=== PATIENT | male | born 1980 | race Caucasian/White ===

== ENCOUNTER 2019-03-11 15:32 | Emergency (ER) | payer BC ==
--- NOTE | 2019-03-11 15:51 | EDM.PDOC ---
ED HPI GENERAL MEDICAL PROBLEM - General Chief Complaint: Abdominal Pain Stated Complaint: STOMACH PAIN Time Seen by Provider: 03/11/19 15:41 Source of Information: Reports: Patient History Limitations: Reports: No Limitations - History of Present Illness INITIAL COMMENTS - FREE TEXT/NARRATIVE: HISTORY AND PHYSICAL: History of present illness: Patient is a 38 year old male who presents to the ED with c/o upper abdominal pain, nausea and vomiting x 1 hour. He states the pain was sudden and describes it as sharp. When the pain came on he was drinking a coffee and sitting at his desk. He did take a shower to see if the cool water would help alleviate any discomfort. He also feels slightly diaphoretic. Patient denies any fever, chills , headache, change in vision, syncope or near syncope. Denies any chest pain, back pain, shortness of breath or cough. Denies any diarrhea, constipation or dysuria. Has not noted any blood in urine or stool. Patient has been eating and drinking appropriately. No recent injury, trauma or falls. Review of systems: As per history of present illness and below otherwise all systems reviewed and negative. Past medical history: As per history of present illness and as reviewed below otherwise noncontributory. Surgical history: As per history of present illness and as reviewed below otherwise noncontributory. Social history: See social history for further information Family history: As per history of present illness and as reviewed below otherwise noncontributory. Physical exam: General: Well-developed and well-nourished 38-year-old male. Alert and oriented. Nontoxic appearing and in no acute distress. HEENT: Atraumatic, normocephalic, pupils equal and reactive bilaterally, negative for conjunctival pallor or scleral icterus, mucous membranes moist, trachea midline. No drooling or trismus noted. No meningeal signs. No hot potato voice noted. Lungs: Clear to auscultation, breath sounds equal bilaterally, chest nontender. Heart: S1S2, regular rate and rhythm without overt murmur Abdomen: Soft, obese, epigastric tenderness with palpation. Negative for masses or hepatosplenomegaly. Negative for costovertebral tenderness. Pelvis: Stable nontender. Genitourinary: Deferred. Rectal: Deferred. Skin: Intact, warm, dry. No lesions or rashes noted. Extremities: Atraumatic, moves all extremities per self without difficulty or deficits. Neurovascular unremarkable. Neuro: Awake, alert, oriented. Cranial nerves II through XII unremarkable. Cerebellum unremarkable. Motor and sensory unremarkable throughout. Exam nonfocal. Notes: Lab work is unremarkable. Ultrasound shows steatosis and cholelithiasis. Vital signs are stable and have been reviewed by me. Findings were shared with patient and supportive care measures were reviewed and discussed. Encouraged him to follow up with general surgery for further evaluation and management. Voices understanding and is agreeable to plan of care. Denies any further questions or concerns at this time. Diagnostics: CBC, CMP, UA, Lipase, EKG Therapeutics: IV fluid, Zofran, Toradol Prescription: Follansbee (#30) Zofran (#10) Impression: Cholelithiasis Plan: 1. [place] diet over the next 24-48 hours. Please follow low-fat diet thereafter 2. Tylenol and/or ibuprofen as needed for pain management. Follansbee for moderate to severe pain. This medication may cause drowsiness so do not take it'll driving or needing to be functioning outside of the house. Zofran as needed for nausea management. 3. Please call the general surgeon's office tomorrow to set up a follow-up appointment. Return to the ED as needed and as discussed. Definitive disposition and diagnosis as appropriate pending reevaluation and review of above. Onset: Today Epigastric Pain Score (Numeric/FACES): 8 - Related Data Allergies Allergy/AdvReac Type Severity Reaction Status Date / Time No Known Allergies Allergy Verified 03/11/19 15:56 Home Meds: Home Meds Fish Oil/[place]-3 Fatty Acids [Fish Oil] 1 tab PO DAILY 03/11/19 [History] Lisinopril/Hydrochlorothiazide [Lisinopril-Hctz 20-25 mg Tab] 1 tab PO DAILY [History] Omeprazole Magnesium [Prilosec Otc] 20 mg PO DAILY 03/11/19 [History] ED ROS GENERAL - Review of Systems Review Of Systems: ROS reveals no pertinent complaints other than HPI. ED EXAM, GI/ABD - Physical Exam Exam: See Below (See dictation) Course - Vital Signs Last Recorded V/S: Last Vital Signs Temp 95.6 F 03/11/19 15:52 Pulse 60 03/11/19 17:10 Resp 18 03/11/19 17:10 BP 149/79 H 03/11/19 17:10 Pulse Ox 94 L 03/11/19 17:10 - Orders/Labs/Meds Orders: Active Orders 24 hr Category Date Time Status EKG Documentation Completion [RC] STAT Care 03/11/19 16:00 Active Labs: Laboratory Tests 03/11/19 03/11/19 03/11/19 Range/Units 16:05 16:05 16:05 WBC 8.44 (4.0-11.0) K/uL RBC 4.96 (4.50-5.90) M/uL Hgb 14.3 (13.0-17.0) g/dL Hct 43.6 (38.0-50.0) % MCV 87.9 (80.0-98.0) fL MCH 28.8 (27.0-32.0) pg MCHC 32.8 (31.0-37.0) g/dL RDW Std Deviation 43.9 (28.0-62.0) fl RDW Coeff of Yazmin 14 (11.0-15.0) % Plt Count 177 (150-400) K/uL MPV 10.10 (7.40-12.00) fL Neut % (Auto) 63.0 (48.0-80.0) % Lymph % (Auto) 27.6 (16.0-40.0) % [place] % (Auto) 8.2 (0.0-15.0) % Eos % (Auto) 0.8 (0.0-7.0) % Baso % (Auto) 0.4 (0.0-1.5) % Neut # (Auto) 5.3 (1.4-5.7) K/uL Lymph # (Auto) 2.3 (0.6-2.4) K/uL [place] # (Auto) 0.7 (0.0-0.8) K/uL Eos # (Auto) 0.1 (0.0-0.7) K/uL Baso # (Auto) 0.0 (0.0-0.1) K/uL Nucleated RBC % 0.0 /100WBC Nucleated RBCs # 0 K/uL Sodium 137 (136-148) mmol/L Potassium 3.3 L (3.5-5.1) mmol/L Chloride 99 (98-107) mmol/L Carbon Dioxide 30.5 (21.0-32.0) mmol/L BUN 17 (7.0-18.0) mg/dL Creatinine 1.0 (0.8-1.3) mg/dL Est Cr Clr Drug Dosing 122.97 mL/min Estimated GFR (MDRD) > 60.0 ml/min Glucose 126 H (74-106) mg/dL Calcium 8.8 (8.5-10.1) mg/dL Total Bilirubin 0.4 (0.2-1.0) mg/dL AST 16 (15-37) IU/L ALT 37 (14-63) IU/L Alkaline Phosphatase 64 (46-116) U/L Troponin I < 0.050 (0.000-0.056) ng/mL Total Protein 7.2 (6.4-8.2) g/dL Albumin 3.8 (3.4-5.0) g/dL Globulin 3.4 (2.6-4.0) g/dL Albumin/Globulin Ratio 1.1 (0.9-1.6) Lipase 154 (73-393) U/L Urine Color Urine Appearance Urine pH (5.0-8.0) Ur Specific [place] (1.001-1.035) Urine Protein (NEGATIVE) mg/dL Urine Glucose (UA) (NEGATIVE) mg/dL Urine Ketones (NEGATIVE) mg/dL Urine Occult Blood (NEGATIVE) Urine Nitrite (NEGATIVE) Urine Bilirubin (NEGATIVE) Urine Ictotest Urine Urobilinogen (<2.0) EU/dL Ur Leukocyte Esterase (NEGATIVE) Urine RBC (0-2/HPF) Urine WBC (0-5/HPF) Ur Epithelial Cells (NONE-FEW) Urine Bacteria (NEGATIVE) Urine Mucus (NONE-MOD) H. pylori IgG Antibody (NEG) 03/11/19 03/11/19 Range/Units 16:05 17:05 WBC (4.0-11.0) K/uL RBC (4.50-5.90) M/uL Hgb (13.0-17.0) g/dL Hct (38.0-50.0) % MCV (80.0-98.0) fL MCH (27.0-32.0) pg MCHC (31.0-37.0) g/dL RDW Std Deviation (28.0-62.0) fl RDW Coeff of Yazmin (11.0-15.0) % Plt Count (150-400) K/uL MPV (7.40-12.00) fL Neut % (Auto) (48.0-80.0) % Lymph % (Auto) (16.0-40.0) % [place] % (Auto) (0.0-15.0) % Eos % (Auto) (0.0-7.0) % Baso % (Auto) (0.0-1.5) % Neut # (Auto) (1.4-5.7) K/uL Lymph # (Auto) (0.6-2.4) K/uL [place] # (Auto) (0.0-0.8) K/uL Eos # (Auto) (0.0-0.7) K/uL Baso # (Auto) (0.0-0.1) K/uL Nucleated RBC % /100WBC Nucleated RBCs # K/uL Sodium (136-148) mmol/L Potassium (3.5-5.1) mmol/L Chloride (98-107) mmol/L Carbon Dioxide (21.0-32.0) mmol/L BUN (7.0-18.0) mg/dL Creatinine (0.8-1.3) mg/dL Est Cr Clr Drug Dosing mL/min Estimated GFR (MDRD) ml/min Glucose (74-106) mg/dL Calcium (8.5-10.1) mg/dL Total Bilirubin (0.2-1.0) mg/dL AST (15-37) IU/L ALT (14-63) IU/L Alkaline Phosphatase (46-116) U/L Troponin I (0.000-0.056) ng/mL Total Protein (6.4-8.2) g/dL Albumin (3.4-5.0) g/dL Globulin (2.6-4.0) g/dL Albumin/Globulin Ratio (0.9-1.6) Lipase (73-393) U/L Urine Color YELLOW Urine Appearance CLEAR Urine pH 5.5 (5.0-8.0) Ur Specific [place] >= 1.030 (1.001-1.035) Urine Protein TRACE H (NEGATIVE) mg/dL Urine Glucose (UA) NEGATIVE (NEGATIVE) mg/dL Urine Ketones NEGATIVE (NEGATIVE) mg/dL Urine Occult Blood NEGATIVE (NEGATIVE) Urine Nitrite NEGATIVE (NEGATIVE) Urine Bilirubin SMALL H (NEGATIVE) Urine Ictotest NEGATIVE Urine Urobilinogen 1.0 (<2.0) EU/dL Ur Leukocyte Esterase NEGATIVE (NEGATIVE) Urine RBC NONE SEEN (0-2/HPF) Urine WBC NONE SEEN (0-5/HPF) Ur Epithelial Cells MANY (NONE-FEW) Urine Bacteria RARE (NEGATIVE) Urine Mucus LIGHT (NONE-MOD) H. pylori IgG Antibody NEGATIVE (NEG) Meds: Medications Discontinued Medications Generic Name Dose Route Start Last Admin Trade Name Freq PRN Reason Stop Dose Admin Al Hydroxide/Mg Hydroxide 15 0 ml 03/11/19 16:39 03/11/19 17:07 ml/ Metoclopramide HCl 5 mg/ PO 03/11/19 16:40 1 each Lidocaine HCl 5 ml ONETIME ONE Administration Famotidine 20 mg 03/11/19 16:39 03/11/19 17:07 Pepcid IVPUSH 03/11/19 16:40 20 mg ONETIME ONE Administration Sodium Chloride 1,000 mls @ 999 mls/hr 03/11/19 15:52 03/11/19 16:10 Normal Saline IV 03/11/19 16:52 999 mls/hr STAT ONE Administration Morphine Sulfate 4 mg 03/11/19 16:00 03/11/19 16:12 Morphine IVPUSH 03/11/19 16:01 4 mg ONETIME ONE Administration Ondansetron HCl 4 mg 03/11/19 15:52 03/11/19 16:12 Zofran IVPUSH 03/11/19 15:53 4 mg ONETIME ONE Administration Departure - Departure Time of Disposition: 17:59 Disposition: Home, Self-Care 01 Clinical Impression: Cholelithiasis Qualifiers: Cholelithiasis location: gallbladder Cholecystitis presence: without cholecystitis Biliary obstruction: without biliary obstruction Qualified Code(s) : K80.20 - Calculus of gallbladder without cholecystitis without obstruction - Discharge Information Instructions: Cholelithiasis, [id number] Referrals: Joy Navarro DYNAM[employer] TECHNICAL ARCHITECT [Primary Care Provider] - Forms: ED Department Discharge Additional Instructions: The following information is given to patients seen in the emergency department who are being discharged to home. This information is to outline your options for follow-up care. We provide all patients seen in our emergency department with a follow-up referral. The need for follow-up, as well as the timing and circumstances, are variable depending upon the specifics of your emergency department visit. If you don't have a primary care physician on staff, we will provide you with a referral. We always advise you to contact your personal physician following an emergency department visit to inform them of the circumstance of the visit and for follow-up with them and/or the need for any referrals to a consulting specialist. The emergency department will also refer you to a specialist when appropriate. This referral assures that you have the opportunity for follow-up care with a specialist. All of these measure are taken in an effort to provide you with optimal care, which includes your follow-up. Under all circumstances we always encourage you to contact your private physician who remains a resource for coordinating your care. When calling for follow-up care, please make the office aware that this follow-up is from your recent emergency room visit. If for any reason you are refused follow-up, please contact the [facility] Emergency Department at and asked to speak to the emergency department charge nurse. [facility] Primary Care [address] [place] [id number] [facility] Specialty Care - General Surgery Professional Building [address] [place] [address], [address] [place] [address] 1. [place] diet over the next 24-48 hours. Please follow low-fat diet thereafter 2. Tylenol and/or ibuprofen as needed for pain management. Follansbee for moderate to severe pain. This medication may cause drowsiness so do not take it'll driving or needing to be functioning outside of the house. Zofran as needed for nausea management. 3. Please call the general surgeon's office tomorrow to set up a follow-up appointment. Return to the ED as needed and as discussed. - My Orders Last 24 Hours: My Active Orders 03/11/19 16:00 EKG Documentation Completion [RC] STAT - Assessment/Plan Last 24 Hours: My Active Orders 03/11/19 16:00 EKG Documentation Completion [RC] STAT
[2019-03-11] MEDS ORDERED: Sodium Chloride 0.9% 1,000 ML IV ONE (15:52)
[2019-03-11] MEDS ORDERED: Ondansetron 4 MG/2 ML SDV IVPUSH ONE (15:52)
[2019-03-11] MEDS ORDERED: Morphine 4 MG/ML Syringe IVPUSH ONE (16:00)
[2019-03-11] MEDS ORDERED: Alum Hydrox/Mag Hydrox/Simeth 15 ML, Metoclopramide 5 MG, Lidocaine 2% 5 ML PO ONE ×3 (16:39)
[2019-03-11] MEDS ORDERED: Famotidine 20 MG/2 ML SDV IVPUSH ONE (16:39)
[2019-03-11 17:09] LABS: CHLORIDE,CL 99 mmol/L (98-107); SODIUM,NA 137 mmol/L (136-148)
--- NOTE | 2019-03-11 17:47 | US ---
INDICATION: Right upper quadrant abdominal pain. FINDINGS: Visualized pancreas is normal. Liver is echogenic with poor through transmission. No definite mass or cyst. Common bile duct 4 mm at the mary anne hepatis. Several small echogenic stones appear mobile at the proximal neck of the gallbladder. No sonographic Walters`s sign. No wall thickening. Right kidney is sonographically normal. IMPRESSION: Steatosis. Cholelithiasis. Dictated by Jefe Cormier MD @ Mar 11 2019 5:44PM Signed by Dr. Jefe Cormier @ Mar 11 2019 5:45PM
== END 2019-03-11 18:10 | disposition home or self-care (01) ==
LOC: MW.ED 15:32
DX: K80.20 Calculus of gallbladder without cholecystitis without obstruction (principal); Z79.899 Other long term (current) drug therapy
CPT/HCPCS: 36415; 76705; 80053; 81001; 83690; 84484; 85025; 86677; 93005; 96361; 96374; 96375; 99284; A9270; J2270; J2405; J3490; J7040

== ENCOUNTER 2019-10-22 11:46 | Emergency (ER) | payer BC ==
[2019-10-22] MEDS ORDERED: Ondansetron 4 MG/2 ML SDV IVPUSH ONE (12:24)
[2019-10-22] MEDS ORDERED: Sodium Chloride 0.9% 1,000 ML IV ONE (12:24)
[2019-10-22] MEDS ORDERED: HYDROmorphone 2 MG/ML Syringe IVPUSH ONE ×2 (12:25→15:46)
--- NOTE | 2019-10-22 12:38 | EDM.PDOC ---
ED HPI GENERAL MEDICAL PROBLEM - General Chief Complaint: Abdominal Pain Stated Complaint: ABD PAIN Time Seen by Provider: 10/22/19 12:14 Source of Information: Reports: Patient History Limitations: Reports: No Limitations - History of Present Illness INITIAL COMMENTS - FREE TEXT/NARRATIVE: HISTORY OF PRESENT ILLNESS: Patient is a 39-year-old male who presents with abdominal pain since 10 AM this morning. Patient describes the pain as diffuse , sharp, 8 out of 10 in severity without exacerbating or alleviating factors. Patient does have a history of gallstones in the past but this pain is more diffuse. Reports nausea and one episode of nausea bloody nonbilious emesis. Denies any diarrhea. No urinary symptoms. Denies any chest pain dyspnea or syncope. Denies any fever or rash. No neck stiffness. REVIEW OF SYSTEMS: Other than the symptoms associated with the present events, the following is reported with regard to recent health: General: (-) fever. HENT: (-) congestion. Respiratory: (-) cough. Cardiovascular: (-) chest pain. GI: (+) abdominal pain. : (-) urinary complaints. Musculoskeletal: (-) other aches or pains. Endocrine: (-) generalized weakness. Neurological: (-) localized weakness. Skin: (-) rash PAST MEDICAL HISTORY: reviewed as per nursing notes SOCIAL HISTORY: reviewed as per nursing notes, MEDICATIONS: Per nurse's note ALLERGIES: Per nurse's note, reviewed by me PHYSICAL EXAMINATION: GENERALIZED APPEARANCE: well developed, well nourished in mild distress VITAL SIGNS: Per nurse's note, reviewed by me SKIN: Warm, dry; (-) cyanosis; (-) rash. HEAD: (-) scalp swelling, (-) tenderness. EYES: (-) conjunctival pallor, (-) scleral icterus. ENMT: (-) stridor; mucous membranes moist. NECK: (-) tenderness, (-) stiffness, CHEST AND RESPIRATORY: (-) rales, (-) rhonchi, (-) wheezes; breath sounds equal bilaterally. HEART AND CARDIOVASCULAR: (-) irregularity; (-) murmur, (-) gallop. ABDOMEN AND GI: Soft; (+) diffuse mild tenderness, (-) guarding, (-) rebound, (-) palpable masses, (-) Mcburney's point tenderness (-) Nicci's EXTREMITIES: (-) deformity, (-) edema. NEURO AND PSYCH: Alert. Cranial nerves grossly intact; strength symmetric. gait steady DIAGNOSTICS: CT abd pelvis: see radiologist report, reviewed by myself US: see radiologist report, reviewed by myself Labs reviewed EMERGENCY DEPARTMENT COURSE AND TREATMENT: Patient's condition remained stable during Emergency Department evaluation. Labs, IVF, Dilaudid and Zofran ordered. CT abd/pelvis ordered. Gallstone present, therefore u/s ordered to exclude cholecystitis. The patient presents to the ED with abdominal pain. After history, physical exam, and diagnostic evaluation, the etiology for the pain is unclear. Laboratory data was ordered. On serial exams, there are no peritoneal signs. Abdomen is soft without guarding or rebound. I think there is a very low probability of significant abdominal pathology based on today's evaluation. The patient is advised to have a followup tomorrow for a recheck and repeat abdominal exam. I also advised to return to the emergency department immediately for significant pain, fevers, not tolerating oral food or fluid, or new complaints. PLAN AND FOLLOW-UP: Patient received written and verbal instructions regarding this condition. Return to ED immediately with any new or worsening symptoms. Follow up to be arranged by patient with pcp in 1 days for further evaluation. Given discharge precautions. Patient expressed verbal understanding. upper abd Pain Score (Numeric/FACES): 8 - Related Data Allergies Allergy/AdvReac Type Severity Reaction Status Date / Time No Known Allergies Allergy Verified 10/22/19 12:26 Home Meds: Home Meds Fish Oil/[place]-3 Fatty Acids [Fish Oil] 1 tab PO DAILY 03/11/19 [History] Lisinopril/Hydrochlorothiazide [Lisinopril-Hctz 20-25 mg Tab] 1 tab PO DAILY [History] Past Medical History Cardiovascular History: Reports: High Cholesterol, Hypertension Gastrointestinal History: Reports: GERD Other Gastrointestinal History: gall stones - Infectious Disease History Infectious Disease History: Reports: Chicken Pox Social & Family History - Family History Family Medical History: Noncontributory - Tobacco Use Smoking Status *Q: Current Every Day Smoker Years of Tobacco use: 20 Packs/Tins Daily: 0.5 - Caffeine Use Caffeine Use: Reports: None - Recreational Drug Use Recreational Drug Use: No ED ROS GENERAL - Review of Systems Review Of Systems: See Below (see dictation) ED EXAM, GI/ABD - Physical Exam Exam: See Below (see dictation) Course - Vital Signs Last Recorded V/S: Last Vital Signs Temp 96.3 F 10/22/19 12:22 Pulse 63 10/22/19 16:20 Resp 18 10/22/19 16:20 BP 120/70 10/22/19 16:20 Pulse Ox 96 10/22/19 16:20 - Orders/Labs/Meds Labs: Laboratory Tests 10/22/19 10/22/19 Range/Units 13:50 13:50 WBC 10.73 (4.0-11.0) K/uL RBC 5.01 (4.50-5.90) M/uL Hgb 14.8 (13.0-17.0) g/dL Hct 43.6 (38.0-50.0) % MCV 87.0 (80.0-98.0) fL MCH 29.5 (27.0-32.0) pg MCHC 33.9 (31.0-37.0) g/dL RDW Std Deviation 44.3 (28.0-62.0) fl RDW Coeff of Yazmin 14 (11.0-15.0) % Plt Count 174 (150-400) K/uL MPV 10.10 (7.40-12.00) fL Neut % (Auto) 76.6 (48.0-80.0) % Lymph % (Auto) 16.9 (16.0-40.0) % [place] % (Auto) 6.1 (0.0-15.0) % Eos % (Auto) 0.2 (0.0-7.0) % Baso % (Auto) 0.2 (0.0-1.5) % Neut # (Auto) 8.2 H (1.4-5.7) K/uL Lymph # (Auto) 1.8 (0.6-2.4) K/uL [place] # (Auto) 0.7 (0.0-0.8) K/uL Eos # (Auto) 0.0 (0.0-0.7) K/uL Baso # (Auto) 0.0 (0.0-0.1) K/uL Nucleated RBC % 0.0 /100WBC Nucleated RBCs # 0 K/uL Sodium 141 (136-148) mmol/L Potassium 4.2 (3.5-5.1) mmol/L Chloride 104 (98-107) mmol/L Carbon Dioxide 28.6 (21.0-32.0) mmol/L BUN 20 H (7.0-18.0) mg/dL Creatinine 0.9 (0.8-1.3) mg/dL Est Cr Clr Drug Dosing 135.29 mL/min Estimated GFR (MDRD) > 60.0 ml/min Glucose 151 H (74-106) mg/dL Calcium 9.0 (8.5-10.1) mg/dL Total Bilirubin 0.3 (0.2-1.0) mg/dL AST 19 (15-37) IU/L ALT 31 (14-63) IU/L Alkaline Phosphatase 54 (46-116) U/L Total Protein 7.3 (6.4-8.2) g/dL Albumin 3.8 (3.4-5.0) g/dL Globulin 3.5 (2.6-4.0) g/dL Albumin/Globulin Ratio 1.1 (0.9-1.6) Lipase 109 (73-393) U/L Meds: Medications Discontinued Medications Generic Name Dose Route Start Last Admin Trade Name Freq PRN Reason Stop Dose Admin Hydromorphone HCl 1 mg 10/22/19 12:25 10/22/19 13:52 Dilaudid IVPUSH 10/22/19 12:26 1 mg ONETIME ONE Administration Hydromorphone HCl 1 mg 10/22/19 15:46 10/22/19 15:54 Dilaudid IVPUSH 10/22/19 15:47 1 mg ONETIME ONE Administration Sodium Chloride 1,000 mls @ 1,000 mls/hr 10/22/19 12:24 10/22/19 13:52 Normal Saline IV 10/22/19 13:23 1,000 mls/hr .Bolus ONE Administration Iopamidol 100 ml 10/22/19 15:34 10/22/19 15:35 Isovue Multipack-370 (76%) IVPUSH 10/22/19 15:35 100 ml ONETIME STA Administration Ondansetron HCl 4 mg 10/22/19 12:24 10/22/19 13:53 Zofran IVPUSH 10/22/19 12:25 4 mg ONETIME ONE Administration Departure - Departure Time of Disposition: 17:17 Disposition: Home, Self-Care 01 Condition: Good Clinical Impression: Abdominal pain, Vomiting, Gallstone - Discharge Information *PRESCRIPTION DRUG MONITORING PROGRAM REVIEWED*: Not Applicable *COPY OF PRESCRIPTION DRUG MONITORING REPORT IN PATIENT MONTEZ: Not Applicable Referrals: Joy Navarro KITCHEN AND COUNTER WORKER [Primary Care Provider] - 1 Day Forms: ED Department Discharge Additional Instructions: The following information is given to patients seen in the emergency department who are being discharged to home. This information is to outline your options for follow-up care. We provide all patients seen in our emergency department with a follow-up referral. The need for follow-up, as well as the timing and circumstances, are variable depending upon the specifics of your emergency department visit. If you don't have a primary care physician on staff, we will provide you with a referral. We always advise you to contact your personal physician following an emergency department visit to inform them of the circumstance of the visit and for follow-up with them and/or the need for any referrals to a consulting specialist. The emergency department will also refer you to a specialist when appropriate. This referral assures that you have the opportunity for follow-up care with a specialist. All of these measure are taken in an effort to provide you with optimal care, which includes your follow-up. Under all circumstances we always encourage you to contact your private physician who remains a resource for coordinating your care. When calling for follow-up care, please make the office aware that this follow-up is from your recent emergency room visit. If for any reason you are refused follow-up, please contact the [facility] Emergency Department at and asked to speak to the emergency department charge nurse. Sepsis Event Note - Evaluation Sepsis Screening Result: No Definite Risk - Focused Exam Vital Signs: Vital Signs Temp Pulse Resp BP Pulse Ox 10/22/19 16:20 63 18 120/70 96 10/22/19 15:37 60 18 154/82 H 97 10/22/19 12:22 96.3 F 56 L 16 123/59 L 96 Date Exam was Performed: 10/22/19 Time Exam was Performed: 17:21
[2019-10-22 14:30] LABS: BLOOD UREA NITROGEN,BUN 20 mg/dL (7.0-18.0); CARBON DIOXIDE,CO2 28.6 mmol/L (21.0-32.0); CHLORIDE,CL 104 mmol/L (98-107); GLUCOSE RANDOM 151 mg/dL (74-106); LIPASE 109 U/L (73-393); POTASSIUM,K 4.2 mmol/L (3.5-5.1); SODIUM,NA 141 mmol/L (136-148)
[2019-10-22] MEDS ORDERED: Iopamidol 755 MG/ML 500 ML Multipack Bottle IVPUSH STA (15:34)
--- NOTE | 2019-10-22 16:09 | CT ---
CT abdomen and pelvis Technique: Multiple axial sections were obtained from above the dome of the diaphragm inferiorly through the pubic symphysis. Intravenous contrast was utilized. No oral contrast has been given. Findings: Visualized lung bases show nothing acute. Liver contains no focal abnormality. Spleen appears within normal limits. Opacity is seen within the gallbladder most likely due to gallstone. Adrenal glands show no nodule. Pancreas is within normal limits. Kidneys show symmetric contrast enhancement with no hydronephrosis or mass. Aorta shows no aneurysm. No retroperitoneal adenopathy or mesenteric abnormalities are seen. No pelvic mass or adenopathy is identified. Appendix is seen and is normal in size. Bone window settings were reviewed which shows no acute osseous finding. Bone lesion noted within the left iliac bone measuring 2.8 cm. This has an appearance of a benign bone lesion. Impression: 1. Probable gallstone. 2. Bone lesion within left iliac bone believed to be benign. 3. No additional abnormality is appreciated on CT study of the abdomen and pelvis. Diagnostic code #2 This report was dictated in [place] Standard Time is
--- NOTE | 2019-10-22 17:14 | US ---
Limited abdominal ultrasound: Multiple real-time images of the upper right abdomen were obtained. Comparison: Prior CT abdomen and pelvis study of 10/22/19 is available. Technologist's note: Difficult study due to patient body habitus Liver shows no discrete abnormality. Single gallstone is seen within the gallbladder measuring 1.6 cm. No gallbladder wall thickening or biliary duct dilatation is seen. Right kidney shows no hydronephrosis or discrete mass. Right kidney measures 12.4 cm in length. Pancreas is mostly obscured from bowel gas. Visualized portions of the pancreas are within normal limits. Impression: 1. Single gallstone with no gallbladder wall thickening or biliary duct dilatation. 2. No additional abnormality is definitely appreciated on somewhat limited right upper quadrant abdominal ultrasound exam. Diagnostic code #3 Study was dictated in [place] Standard Time
== END 2019-10-22 17:45 | disposition home or self-care (01) ==
LOC: MW.ED 11:46
DX: K80.20 Calculus of gallbladder without cholecystitis without obstruction (principal); I10 Essential (primary) hypertension; F17.210 Nicotine dependence, cigarettes, uncomplicated; Z79.899 Other long term (current) drug therapy
CPT/HCPCS: 36415; 74177; 76705; 80053; 83690; 85025; 96361; 96374; 96375; 96376; 99284; J1170; J2405; J7030; Q9967; 99283

== ENCOUNTER 2019-10-25 03:04 | Emergency (ER) | payer BC ==
[2019-10-25] MEDS ORDERED: Hyoscyamine 0.125 MG Tab.SL SL ONE (03:34)
--- NOTE | 2019-10-25 03:39 | EDM.PDOC ---
ED HPI GENERAL MEDICAL PROBLEM - General Chief Complaint: Abdominal Pain Stated Complaint: ABDOMINAL PAIN Time Seen by Provider: 10/25/19 03:27 - History of Present Illness INITIAL COMMENTS - FREE TEXT/NARRATIVE: HISTORY AND PHYSICAL: History of present illness: The patient is a 39-year-old male who was seen here on October 22 for abdominal pain and worked up with labs CAT scan of the abdomen and pelvis and an abdominal ultrasound and was diagnosed with a gallstone without any other abnormalities. He has a follow-up appointment scheduled at [facility] on Saturday but presents stating that since this past Saturday he has not had a bowel movement which is unusual for him. He says that with the discomfort and the pain medications he received here in the ED as well as some old [place] he had at home he has been taking he has gotten constipated. He has been pushing fluids and eating high-fiber but has not tried stool softeners or any other over -the-counter laxatives. He has had no fevers chills chest pain shortness of breath vomiting flank pain and no urinary issues. He says that he feels somewhat gassy and bloated and that his abdominal pain is still present in the right upper quadrant prior to his last visit but that has lessened and now he has diffuse upper abdominal and mid abdominal discomfort. He has no lower abdominal pain. He has no abdominal surgical history. Review of systems: As per history of present illness and below otherwise all systems reviewed and negative. Past medical history: As per history of present illness and as reviewed below otherwise noncontributory. Surgical history: As per history of present illness and as reviewed below otherwise noncontributory. Social history: No reported history of drug or alcohol abuse. Family history: As per history of present illness and as reviewed below otherwise noncontributory. Physical exam: Well-developed well-nourished overweight man who is nontoxic and vital signs are noted by me. He moves easily in the ED without any distress or difficulty HEENT: Atraumatic, normocephalic, pupils reactive, negative for conjunctival pallor or scleral icterus, mucous membranes moist, throat clear, neck supple, nontender, trachea midline. Lungs: Clear to auscultation, breath sounds equal bilaterally, chest nontender. Heart: S1S2, regular, negative for clicks, rubs, or JVD. Abdomen: Soft, nondistended, diminished bowel sounds and there is tympany on percussion of the upper abdomen without discrete tenderness. On palpation there is diffuse upper abdominal and mid abdominal mild tenderness without rebound or guarding and there is no lower abdominal tenderness, negative for masses or hepatosplenomegaly. Negative for costovertebral tenderness. Pelvis: Stable nontender. Genitourinary: Deferred. Rectal: Deferred. Extremities: Atraumatic, negative for cords or calf pain. Neurovascular unremarkable. Neuro: Awake, alert, oriented. Cranial nerves II through XII unremarkable. Cerebellum unremarkable. Motor and sensory unremarkable throughout. Exam nonfocal. Diagnostics: CBC CMP lipase abdominal x-rays Therapeutics: hyoscamine The patient is aware of all lab and x-ray findings and says that the hyoscyamine did not really help very much. He has an appointment with his provider coming up and I advised him to keep that. I have also discussed with him using [id number] Colace twice a day for the next week or so as well as MiraLAX mixed with Gatorade try to help to get his bowels going in a more gentle way. He states understanding. Impression: Abdominal pain/constipation history of cholelithiasis and abdominal pain associated with that Definitive disposition and diagnosis as appropriate pending reevaluation and review of above. Abdominal Pain Score (Numeric/FACES): 5 - Related Data Allergies Allergy/AdvReac Type Severity Reaction Status Date / Time No Known Allergies Allergy Verified 10/25/19 03:24 Home Meds: Home Meds Fish Oil/[place]-3 Fatty Acids [Fish Oil] 1 tab PO DAILY 03/11/19 [History] Lisinopril/Hydrochlorothiazide [Lisinopril-Hctz 20-25 mg Tab] 1 tab PO DAILY [History] Past Medical History Cardiovascular History: Reports: High Cholesterol, Hypertension Gastrointestinal History: Reports: GERD Other Gastrointestinal History: gall stones - Infectious Disease History Infectious Disease History: Reports: Chicken Pox Social & Family History - Family History Family Medical History: Noncontributory - Caffeine Use Caffeine Use: Reports: None ED ROS GENERAL - Review of Systems Review Of Systems: Comprehensive ROS is negative, except as noted in HPI. ED EXAM, GENERAL - Physical Exam Exam: See Below (see dictation) Course - Vital Signs Last Recorded V/S: Last Vital Signs Temp 35.6 C 10/25/19 03:12 Pulse 89 10/25/19 03:12 Resp 18 10/25/19 03:12 BP 142/86 H 10/25/19 03:12 Pulse Ox 97 10/25/19 03:12 - Orders/Labs/Meds Labs: Laboratory Tests 10/25/19 10/25/19 Range/Units 03:53 03:53 WBC 13.40 H (4.0-11.0) K/uL RBC 5.12 (4.50-5.90) M/uL Hgb 15.2 (13.0-17.0) g/dL Hct 45.2 (38.0-50.0) % MCV 88.3 (80.0-98.0) fL MCH 29.7 (27.0-32.0) pg MCHC 33.6 (31.0-37.0) g/dL RDW Std Deviation 46.0 (28.0-62.0) fl RDW Coeff of Yazmin 14 (11.0-15.0) % Plt Count 183 (150-400) K/uL MPV 10.40 (7.40-12.00) fL Neut % (Auto) 75.0 (48.0-80.0) % Lymph % (Auto) 12.9 L (16.0-40.0) % [place] % (Auto) 11.6 (0.0-15.0) % Eos % (Auto) 0.4 (0.0-7.0) % Baso % (Auto) 0.1 (0.0-1.5) % Neut # (Auto) 10.0 H (1.4-5.7) K/uL Lymph # (Auto) 1.7 (0.6-2.4) K/uL [place] # (Auto) 1.6 H (0.0-0.8) K/uL Eos # (Auto) 0.1 (0.0-0.7) K/uL Baso # (Auto) 0.0 (0.0-0.1) K/uL Nucleated RBC % 0.0 /100WBC Nucleated RBCs # 0 K/uL Sodium 140 (136-148) mmol/L Potassium 4.5 (3.5-5.1) mmol/L Chloride 100 (98-107) mmol/L Carbon Dioxide 33.3 H (21.0-32.0) mmol/L BUN 10 (7.0-18.0) mg/dL Creatinine 0.9 (0.8-1.3) mg/dL Est Cr Clr Drug Dosing TNP Estimated GFR (MDRD) > 60.0 ml/min Glucose 106 (74-106) mg/dL Calcium 9.2 (8.5-10.1) mg/dL Total Bilirubin 0.8 (0.2-1.0) mg/dL AST 11 L (15-37) IU/L ALT 29 (14-63) IU/L Alkaline Phosphatase 50 (46-116) U/L Total Protein 7.6 (6.4-8.2) g/dL Albumin 3.8 (3.4-5.0) g/dL Globulin 3.8 (2.6-4.0) g/dL Albumin/Globulin Ratio 1.0 (0.9-1.6) Lipase 101 (73-393) U/L Meds: Medications Discontinued Medications Generic Name Dose Route Start Last Admin Trade Name Freq PRN Reason Stop Dose Admin Hyoscyamine 0.125 mg 10/25/19 03:34 10/25/19 03:44 Hyomax-Sl SL 10/25/19 03:35 0.125 mg ONETIME ONE Administration Departure - Departure Time of Disposition: 04:35 Disposition: Home, Self-Care 01 Condition: Good Clinical Impression: Abdominal pain Qualifiers: Abdominal location: generalized Qualified Code(s): R10.84 - Generalized abdominal pain Constipation Qualifiers: Constipation type: unspecified constipation type Qualified Code(s): K59.00 - Constipation, unspecified - Discharge Information Referrals: Joy Navarro NP [Primary Care Provider] - Forms: ED Department Discharge Additional Instructions: The following information is given to patients seen in the emergency department who are being discharged to home. This information is to outline your options for follow-up care. We provide all patients seen in our emergency department with a follow-up referral. The need for follow-up, as well as the timing and circumstances, are variable depending upon the specifics of your emergency department visit. If you don't have a primary care physician on staff, we will provide you with a referral. We always advise you to contact your personal physician following an emergency department visit to inform them of the circumstance of the visit and for follow-up with them and/or the need for any referrals to a consulting specialist. The emergency department will also refer you to a specialist when appropriate. This referral assures that you have the opportunity for followup care with a specialist. All of these measure are taken in an effort to provide you with optimal care, which includes your followup. Under all circumstances we always encourage you to contact your private physician who remains a resource for coordinating your care. When calling for followup care, please make the office aware that this follow-up is from your recent emergency room visit. If for any reason you are refused follow-up, please contact the [facility] emergency department at and ask to speak to the emergency department charge nurse. [address] [place] [address] Continue with hydration and high-fiber foods and avoid fatty foods junk foods and fast foods as this may trigger your gallbladder. Keep your appointment with your provider in the clinic as scheduled this week. Use tuux-whx-jxsudlo Colace as we discussed 100 mg twice a day for the next week and then continue as you choose. Purchase and start using stav-xyu-zehypdj MiraLAX as we discussed mixed with Gatorade and for the next 2 days take it twice a day and then once a day until you feel like your bowels are moving more appropriately. Return to ER as needed and as we discussed Sepsis Event Note - Evaluation Sepsis Screening Result: No Definite Risk - Focused Exam Vital Signs: Vital Signs Temp Pulse Resp BP Pulse Ox 10/25/19 03:12 35.6 C 89 18 142/86 H 97 Date Exam was Performed: 10/25/19 Time Exam was Performed: 04:34
[2019-10-25 04:12] LABS: BLOOD UREA NITROGEN,BUN 10 mg/dL (7.0-18.0); CARBON DIOXIDE,CO2 33.3 mmol/L (21.0-32.0); CHLORIDE,CL 100 mmol/L (98-107); GLUCOSE RANDOM 106 mg/dL (74-106); LIPASE 101 U/L (73-393); POTASSIUM,K 4.5 mmol/L (3.5-5.1); SODIUM,NA 140 mmol/L (136-148)
--- NOTE | 2019-10-25 04:22 | CR ---
Indication: Abdominal pain Technique: KUB 2 view Comparison: CT abdomen pelvis October 22, 2019 Findings/Impression: : Soft tissues: No suspicious calcifications to suggest kidney or ureteral stones. No sign of free air. No sign of soft tissue mass. Bowel: Bowel pattern is within normal limits. Bones: Unremarkable for age. Dictated by Laura Coyle MD @ Oct 25 2019 4:21AM Signed by Dr. Laura Coyle @ Oct 25 2019 4:21AM
== END 2019-10-25 04:54 | disposition home or self-care (01) ==
LOC: MW.ED 03:04
DX: R10.84 Generalized abdominal pain (principal); K59.00 Constipation, unspecified; I10 Essential (primary) hypertension; Z87.19 Personal history of other diseases of the digestive system; Z79.899 Other long term (current) drug therapy
CPT/HCPCS: 36415; 74019; 80053; 83690; 85025; 99284; A9270; 99283

== ENCOUNTER 2020-01-23 12:35 | Emergency (ER) | payer BC ==
[2020-01-23] MEDS ORDERED: Ondansetron 4 MG/2 ML SDV IVPUSH ONE (12:59)
[2020-01-23] MEDS ORDERED: Sodium Chloride 0.9% 1,000 ML IV ONE (12:59)
[2020-01-23] MEDS ORDERED: Ketorolac 30 MG/ML SDV IVPUSH ONE (12:59)
--- NOTE | 2020-01-23 13:01 | EDM.PDOC ---
ED HPI GENERAL MEDICAL PROBLEM - General Chief Complaint: Back Pain or Injury Stated Complaint: BACK PAIN/ABDOMINAL PAIN Time Seen by Provider: 01/23/20 12:40 Source of Information: Reports: Patient History Limitations: Reports: No Limitations - History of Present Illness INITIAL COMMENTS - FREE TEXT/NARRATIVE: HISTORY AND PHYSICAL: History of present illness: Patient is a 39-year-old male who presents to the emergency room with complaints of right upper quadrant and low back pain since . He states he has been delayed in getting his gallbladder removed due to COIVD-19 cancellation of elective surgeries. He has been dealing with "gallbladder issues" over the past 6 to 8 months. On he had a fried chicken sandwich and ice cream, resulting in the pain he is experiencing now. He did have some leftover hydrocodone which he took yesterday and seemed to help alleviate his discomfort but today his low back pain is "unbearable". He has had some associated nausea and vomiting. Patient denies any fever, chills, headache, change in vision, syncope or near syncope. Denies any chest pain, back pain, shortness of breath or cough. Denies any diarrhea, constipation or dysuria. Has not noted any blood in urine or stool. Denies any testicular pain , swelling or redness. Patient has been eating and drinking appropriately. Review of systems: As per history of present illness and below otherwise all systems reviewed and negative. Past medical history: As per history of present illness and as reviewed below otherwise noncontributory. Surgical history: As per history of present illness and as reviewed below otherwise noncontributory. Social history: See social history for further information Family history: As per history of present illness and as reviewed below otherwise noncontributory. Physical exam: General: Well-developed and well-nourished 39-year-old male. Alert and oriented. Nontoxic-appearing and in no acute distress. HEENT: Atraumatic, normocephalic, pupils equal and reactive bilaterally, negative for conjunctival pallor or scleral icterus, mucous membranes moist, TMs normal bilaterally, throat clear, neck supple, nontender, trachea midline. No drooling or trismus noted. No meningeal signs. No hot potato voice noted. Lungs: Clear to auscultation, breath sounds equal bilaterally, chest nontender. Heart: S1S2, regular rate and rhythm without overt murmur Abdomen: Soft, obese, right upper quadrant tenderness. Negative for masses or hepatosplenomegaly. Negative for costovertebral tenderness. Skin: Intact, warm, dry. No lesions or rashes noted. Extremities: Atraumatic, moves all extremities per self without difficulty or deficits, negative for cords or calf pain. Neurovascular unremarkable. Neuro: Awake, alert, oriented. Cranial nerves II through XII unremarkable. Cerebellum unremarkable. Motor and sensory unremarkable throughout. Exam nonfocal. Notes: He does have an appointment with Dr. Parson, general surgeon, on 02/02/2020 for follow up with his gallbladder. Lab work is unremarkable. Ultrasound shows at least 3 mobile gallstones. The gallbladder wall is thickened, but no pericholecystic free fluid is identified. The patient has not been NPO for 6 hours. A mild sonographic Walters`s sign is present. We discussed dietary, medication, and supportive care measures for home. And and symptoms that would prompt him to return to the emergency room were reviewed and discussed. voices understanding and is agreeable to plan of care. Denies any further questions or concerns at this time. Diagnostics: CBC, CMP, UA, Gallbladder U/S Therapeutics: IV fluids, Zofran, Toradol Prescription: [place] and Zofran Impression: Gallstones Plan: 1. [place] diet, advance as tolerated. Avoid foods that will aggravate your gallbladder. 2. Increase your oral fluids. Tylenol and/or ibuprofen as needed for pain management. [place] and Zofran as directed. 3. Call Dr Parson's office to see if you able to get an expedited appointment, if not - keep your appointment for 02/02/20. 4. Return to the ED as needed and as discussed. Definitive disposition and diagnosis as appropriate pending reevaluation and review of above. RUQ and low back Pain Score (Numeric/FACES): 6 - Related Data Allergies Allergy/AdvReac Type Severity Reaction Status Date / Time No Known Allergies Allergy Verified 01/23/20 12:51 Home Meds: Home Meds Fish Oil/[place]-3 Fatty Acids [Fish Oil] 1 tab PO DAILY 03/11/19 [History] Lisinopril/Hydrochlorothiazide [Lisinopril-Hctz 20-25 mg Tab] 1 each PO DAILY [History] Past Medical History HEENT History: Reports: None Cardiovascular History: Reports: High Cholesterol, Hypertension Respiratory History: Reports: None Gastrointestinal History: Reports: GERD Other Gastrointestinal History: symptomatic cholelithiasis Genitourinary History: Reports: None Musculoskeletal History: Reports: None Neurological History: Reports: None Psychiatric History: Reports: None Endocrine/Metabolic History: Reports: Obesity/BMI 30+ Hematologic History: Reports: None Immunologic History: Reports: None Oncologic (Cancer) History: Reports: None Dermatologic History: Reports: None - Infectious Disease History Infectious Disease History: Reports: None - Past Surgical History Head Surgeries/Procedures: Reports: None HEENT Surgical History: Reports: Tonsillectomy Cardiovascular Surgical History: Reports: None Respiratory Surgical History: Reports: None GI Surgical History: Reports: None Male Surgical History: Reports: None Endocrine Surgical History: Reports: None Neurological Surgical History: Reports: None Musculoskeletal Surgical History: Reports: None Oncologic Surgical History: Reports: None Dermatological Surgical History: Reports: None Social & Family History - Family History Family Medical History: Noncontributory - Tobacco Use Smoking Status *Q: Current Every Day Smoker Years of Tobacco use: 20 Packs/Tins Daily: 0.5 - Caffeine Use Caffeine Use: Reports: None - Recreational Drug Use Recreational Drug Use: No ED ROS GENERAL - Review of Systems Review Of Systems: Comprehensive ROS is negative, except as noted in HPI. ED EXAM,LOWER BACK PAIN/INJURY - Physical Exam Exam: See Below (See dictation) Course - Vital Signs Last Recorded V/S: Last Vital Signs Temp 96.7 F L 01/23/20 12:52 Pulse 68 01/23/20 14:27 Resp 18 01/23/20 14:27 BP 145/80 H 01/23/20 14:27 Pulse Ox 98 01/23/20 14:27 - Orders/Labs/Meds Orders: Active Orders 24 hr Category Date Time Status COMPREHENSIVE METABOLIC PN,CMP [CHEM] Stat Lab 01/23/20 13:59 Received Labs: Laboratory Tests 01/23/20 01/23/20 Range/Units 13:00 13:59 WBC 10.71 (4.0-11.0) K/uL RBC 4.93 (4.50-5.90) M/uL Hgb 14.5 (13.0-17.0) g/dL Hct 43.9 (38.0-50.0) % MCV 89.0 (80.0-98.0) fL MCH 29.4 (27.0-32.0) pg MCHC 33.0 (31.0-37.0) g/dL RDW Std Deviation 46.5 (28.0-62.0) fl RDW Coeff of Yazmin 14 (11.0-15.0) % Plt Count 178 (150-400) K/uL MPV 9.80 (7.40-12.00) fL Neut % (Auto) 74.5 (48.0-80.0) % Lymph % (Auto) 16.6 (16.0-40.0) % [place] % (Auto) 8.5 (0.0-15.0) % Eos % (Auto) 0.3 (0.0-7.0) % Baso % (Auto) 0.1 (0.0-1.5) % Neut # (Auto) 8.0 H (1.4-5.7) K/uL Lymph # (Auto) 1.8 (0.6-2.4) K/uL [place] # (Auto) 0.9 H (0.0-0.8) K/uL Eos # (Auto) 0.0 (0.0-0.7) K/uL Baso # (Auto) 0.0 (0.0-0.1) K/uL Nucleated RBC % 0.0 /100WBC Nucleated RBCs # 0 K/uL Urine Color YELLOW Urine Appearance CLEAR Urine pH 7.5 (5.0-8.0) Ur Specific [place] 1.020 (1.001-1.035) Urine Protein NEGATIVE (NEGATIVE) mg/dL Urine Glucose (UA) NEGATIVE (NEGATIVE) mg/dL Urine Ketones NEGATIVE (NEGATIVE) mg/dL Urine Occult Blood NEGATIVE (NEGATIVE) Urine Nitrite NEGATIVE (NEGATIVE) Urine Bilirubin NEGATIVE (NEGATIVE) Urine Urobilinogen 0.2 (<2.0) EU/dL Ur Leukocyte Esterase NEGATIVE (NEGATIVE) Meds: Medications Discontinued Medications Generic Name Dose Route Start Last Admin Trade Name Freq PRN Reason Stop Dose Admin Sodium Chloride 1,000 mls @ 999 mls/hr 01/23/20 12:59 01/23/20 13:07 Normal Saline IV 01/23/20 13:59 999 mls/hr STAT ONE Administration Ketorolac Tromethamine 30 mg 01/23/20 12:59 01/23/20 13:07 Toradol IVPUSH 01/23/20 13:00 30 mg ONETIME ONE Administration Ondansetron HCl 4 mg 01/23/20 12:59 01/23/20 13:07 Zofran IVPUSH 01/23/20 13:00 4 mg ONETIME ONE Administration Departure - Departure Time of Disposition: 14:39 Disposition: Home, Self-Care 01 Clinical Impression: Gallstone Qualifiers: Cholecystitis presence: without cholecystitis Biliary obstruction: without biliary obstruction Qualified Code(s): K80.20 - Calculus of gallbladder without cholecystitis without obstruction - Discharge Information Instructions: Cholelithiasis, Vyze-ye-Kohw Referrals: Joy Navarro NP [Primary Care Provider] - Forms: ED Department Discharge Additional Instructions: The following information is given to patients seen in the emergency department who are being discharged to home. This information is to outline your options for follow-up care. We provide all patients seen in our emergency department with a follow-up referral. The need for follow-up, as well as the timing and circumstances, are variable depending upon the specifics of your emergency department visit. If you don't have a primary care physician on staff, we will provide you with a referral. We always advise you to contact your personal physician following an emergency department visit to inform them of the circumstance of the visit and for follow-up with them and/or the need for any referrals to a consulting specialist. The emergency department will also refer you to a specialist when appropriate. This referral assures that you have the opportunity for follow-up care with a specialist. All of these measure are taken in an effort to provide you with optimal care, which includes your follow-up. Under all circumstances we always encourage you to contact your private physician who remains a resource for coordinating your care. When calling for follow-up care, please make the office aware that this follow-up is from your recent emergency room visit. If for any reason you are refused follow-up, please contact the [facility] Emergency Department at and asked to speak to the emergency department charge nurse. [facility] [address] [place] [id number] [facility] [address] [place] [id number] 1. [place] diet, advance as tolerated. Avoid foods that will aggravate your gallbladder. 2. Increase your oral fluids. Tylenol and/or ibuprofen as needed for pain management. [place] and Zofran as directed. 3. Call Dr Parson's office to see if you able to get an expedited appointment, if not - keep your appointment for 02/02/20. 4. Return to the ED as needed and as discussed. Sepsis Event Note - Evaluation Sepsis Screening Result: No Definite Risk - Focused Exam Vital Signs: Vital Signs Temp Pulse Resp BP Pulse Ox 01/23/20 14:27 68 18 145/80 H 98 01/23/20 12:52 96.7 F L 90 20 162/94 H 98 Date Exam was Performed: 01/23/20 Time Exam was Performed: 14:35 - My Orders Last 24 Hours: My Active Orders 01/23/20 13:59 COMPREHENSIVE METABOLIC PN,CMP [CHEM] Stat - Assessment/Plan Last 24 Hours: My Active Orders 01/23/20 13:59 COMPREHENSIVE METABOLIC PN,CMP [CHEM] Stat
--- NOTE | 2020-01-23 14:34 | US ---
Indication: Right upper quadrant ultrasound. History: Right upper quadrant pain. Ultrasound of the right upper quadrant was performed. Technique: None Comparison: October 22, 2019. Findings: The liver measures 16.8 centimeters in maximum dimension. The liver is heterogeneous in echotexture, consistent with diffuse fatty infiltration. The common bile duct measures 5 mm in size. At least 3 mobile gallstones are identified. No pericholecystic free fluid is identified. The gallbladder wall does appear to be mildly thickened measuring just under 5 mm in thickness. However, the patient 8 approximately 5 hours ago. Hepatopetal flow is identified within the portal vein. Portal vein is patent. The hepatic veins are patent. The right kidney measures 13.0 x 6.1 x 7.4 cm in size. No hydronephrosis is identified. No perinephric free fluid is identified. Normal color flow is identified to the right kidney. The pancreas is not well appreciated. The proximal aorta measures 2.3 x 2.4 x 1.4 cm in size. The mid aorta measures 2.1 x 1.7 cm in size. The distal aorta measures 1.8 x 1.9 cm in size. The right iliac artery measures 1.5 x 1.2 cm in size. The left iliac artery measures 1.3 x 0.7 cm in size. The inferior vena cava is patent. No free fluid is identified within the abdomen or pelvis. Impression: At least 3 mobile gallstones. The gallbladder wall is thickened, but no pericholecystic free fluid is identified. The patient has not been NPO for 6 hours. A mild sonographic Walters`s sign is present. Heterogeneity of the liver which can be seen with diffuse fatty infiltration of the liver. Dictated by Selma Park MD @ Jan 23 2020 2:26PM Signed by Dr. Selma Park @ Jan 23 2020 2:31PM
[2020-01-23 14:50] LABS: BLOOD UREA NITROGEN,BUN 9 mg/dL (7.0-18.0); CARBON DIOXIDE,CO2 32.8 mmol/L (21.0-32.0); CHLORIDE,CL 101 mmol/L (98-107); GLUCOSE RANDOM 118 mg/dL (74-106); POTASSIUM,K 3.8 mmol/L (3.5-5.1); SODIUM,NA 136 mmol/L (136-148)
== END 2020-01-23 14:46 | disposition home or self-care (01) ==
LOC: MW.ED 12:35
DX: K80.20 Calculus of gallbladder without cholecystitis without obstruction (principal); I10 Essential (primary) hypertension; E66.9 Obesity, unspecified; Z68.42 Body mass index [BMI] 45.0-49.9, adult; F17.210 Nicotine dependence, cigarettes, uncomplicated; Z79.899 Other long term (current) drug therapy
CPT/HCPCS: 36415; 76705; 80053; 81003; 85025; 96360; 99284; J1885; J2405; J7030; 99283

== ENCOUNTER 2020-02-02 06:32 | Inpatient (IN) | payer BC ==
[~2020-02-02 06:32] MED LIST: Lactated Ringers 1,000 ML IV ONE; Lactated Ringers 1,000 ML IV SCH; Sodium Chloride 0.9% 10 ML SDV IV PRN; Sodium Chloride 0.9% 10 ML Syringe FLUSH PRN; Sodium Chloride 0.9% 2.5 ML Syringe FLUSH PRN; ceFAZolin 2 GM in Premix Bag 1 BAG IV ONE
[2020-02-02] MEDS: Lactated Ringers 1,000 ML IV SCH ×3 (07:15→20:54)
[2020-02-02] MEDS ORDERED: fentaNYL 250 MCG/5 ML SDV ONE (07:36)
[2020-02-02] MEDS ORDERED: 50% Dextrose in Water 50 ML Syringe IVPUSH PRN (07:40)
[2020-02-02] MEDS ORDERED: Naloxone 0.4 MG/ML Syringe IVPUSH PRN (07:40)
[2020-02-02] MEDS ORDERED: EPINEPHrine 1:10,000 1 MG/10 ML Syringe IVPUSH PRN (07:40)
[2020-02-02] MEDS ORDERED: Albuterol 0.083% 2.5 MG/3 ML Neb Soln NEB PRN (07:40)
[2020-02-02] MEDS ORDERED: fentaNYL 100 MCG/2 ML SDV IVPUSH PRN (07:40)
[2020-02-02] MEDS ORDERED: Atropine 0.1 MG/ML 10 ML Syringe IVPUSH PRN ×2 (07:40)
--- NOTE | 2020-02-02 07:41 | PCM.PREANE ---
Preanesthetic Assessment - Anesthesia/Transfusion/Family Hx Anesthesia History: Prior Anesthesia Without Reaction Family History of Anesthesia Reaction: No Transfusion History: No Prior Transfusion(s) Intubation History: Unknown - Review of Systems General: No Symptoms Pulmonary: No Symptoms Cardiovascular: No Symptoms Gastrointestinal: No Symptoms Neurological: No Symptoms Other: Reports: None - Physical Assessment Height: 6 ft 4 in Weight: 162.386 kg ASA Class: 3 Mental Status: Alert & Oriented x3 Airway Class: Mallampati = 3 Dentition: Reports: Normal Dentition, Broken Tooth/Teeth (rigt lower (back)) Thyro-Mental Finger Breadths: 3 (long montesinos) Mouth Opening Finger Breadths: 3 ROM/Head Extension: Full Lungs: Clear to Auscultation, Normal Respiratory Effort Cardiovascular: Regular Rate, Regular Rhythm - Allergies Allergies/Adverse Reactions: Allergies Allergy/AdvReac Type Severity Reaction Status Date / Time No Known Allergies Allergy Verified 02/02/20 07:36 - Blood Blood Available: No - Anesthesia Plan Pre-Op Medication Ordered: None - Acknowledgements Anesthesia Type Planned: General Anesthesia Pt an Appropriate Candidate for the Planned Anesthesia: Yes Alternatives and Risks of Anesthesia Discussed w Pt/Guardian: Yes Pt/Guardian Understands and Agrees with Anesthesia Plan: Yes PreAnesthesia Questionnaire HEENT History: Reports: None Cardiovascular History: Reports: High Cholesterol, Hypertension Respiratory History: Reports: None, Other (See Below) (never tested for sleep apnea) Gastrointestinal History: Reports: Cholelithiasis, GERD Other Gastrointestinal History: symptomatic cholelithiasis Genitourinary History: Reports: None Musculoskeletal History: Reports: None Neurological History: Reports: None Psychiatric History: Reports: None Endocrine/Metabolic History: Reports: Obesity/BMI 30+ (BMI 43.6) Hematologic History: Reports: None Immunologic History: Reports: None Oncologic (Cancer) History: Reports: None Dermatologic History: Reports: None - Infectious Disease History Infectious Disease History: Reports: None - Past Surgical History Head Surgeries/Procedures: Reports: None HEENT Surgical History: Reports: Tonsillectomy (at age 13) Cardiovascular Surgical History: Reports: None Respiratory Surgical History: Reports: None GI Surgical History: Reports: None Male Surgical History: Reports: None Endocrine Surgical History: Reports: None Neurological Surgical History: Reports: None Musculoskeletal Surgical History: Reports: None Oncologic Surgical History: Reports: None Dermatological Surgical History: Reports: None - SUBSTANCE USE Smoking Status *Q: Current Every Day Smoker (1 ppd) Tobacco Use Within Last Twelve Months: Cigarettes - HOME MEDS Home Medications: Home Meds Fish Oil/[place]-3 Fatty Acids [Fish Oil] 1 tab PO DAILY 03/11/19 [History] hydroCHLOROthiazide [Hydrochlorothiazide] 50 mg PO DAILY 01/27/20 [History] lisinopriL [Lisinopril] 20 mg PO DAILY 01/27/20 [History] - CURRENT (IN HOUSE) MEDS Current Meds: Current Medications Lactated Ringer's (Ringers, Lactated) 1,000 mls @ 125 mls/hr IV ASDIRECTED ANDREY Discontinued Medications Cefazolin Sodium/Dextrose 2 gm (/ Premix) 50 mls @ 100 mls/hr IV ONETIME ONE Stop: 12/10/19 09:05 Lactated Ringer's (Ringers, Lactated) 1,000 mls @ 125 mls/hr IV ASDIRECTED ANDREY Cefazolin Sodium/Dextrose 2 gm (/ Premix) 50 mls @ 100 mls/hr IV ONETIME ONE Stop: 02/01/20 10:02 Sodium Chloride (Saline Flush) 10 ml FLUSH ASDIRECTED PRN PRN Reason: Keep Vein Open Sodium Chloride (Saline Flush) 2.5 ml FLUSH ASDIRECTED PRN PRN Reason: Keep Vein Open Sodium Chloride (Normal Saline) 10 ml IV ASDIRECTED PRN PRN Reason: IV Use
[2020-02-02] MEDS ORDERED: Lidocaine 2% 5 ML SDV ONE (08:29)
[2020-02-02] MEDS ORDERED: Midazolam 1 MG/ML 2 ML SDV ONE (08:29)
[2020-02-02] MEDS ORDERED: Ondansetron 4 MG/2 ML SDV ONE (08:29)
[2020-02-02] MEDS ORDERED: Rocuronium 100 MG/10 ML Syringe ONE (08:29)
[2020-02-02] MEDS ORDERED: Propofol 200 MG/20 ML SDV ONE (08:29)
[2020-02-02] MEDS ORDERED: Succinylcholine/Sod PF 100 MG/5 ML SYRINGE IV ONE ×2 (08:29→08:30)
[2020-02-02] MEDS ORDERED: Bupivacaine 0.5% 30 ML SDV ONE ×2 (09:10→11:33)
[2020-02-02] MEDS ORDERED: Glycopyrrolate 0.2 MG/ML SDV ONE ×2 (10:39)
[2020-02-02] MEDS ORDERED: Sodium Chloride 0.9% 20 ML ONE ×2 (10:47→10:51)
[2020-02-02] MEDS ORDERED: ceFAZolin 1 GM Vial ONE ×3 (10:47→11:33)
[2020-02-02] MEDS ORDERED: fentaNYL 100 MCG/2 ML SDV ONE ×3 (11:04→13:14)
[2020-02-02] MEDS ORDERED: ePHEDrine 50 MG/ML SDV ONE (11:30)
[2020-02-02] MEDS ORDERED: Piperacillin/Tazobactam 4.5 GM in Sodium Chloride 0.9% 100 ML IV ONE (11:45)
[2020-02-02] MEDS ORDERED: HYDROmorphone 2 MG/ML Syringe ONE (12:18)
[2020-02-02] MEDS ORDERED: Ketorolac 30 MG/ML SDV ONE (13:14)
[2020-02-02] MEDS ORDERED: Acetaminophen/oxyCODONE 325-5 MG Tab PO PRN (13:45)
[2020-02-02] MEDS ORDERED: Ondansetron 4 MG/2 ML SDV IVPUSH PRN (13:45)
[2020-02-02] MEDS ORDERED: diphenhydrAMINE 50 MG/ML SDV IVPUSH PRN (13:45)
[2020-02-02] MEDS ORDERED: HYDROmorphone 2 MG/ML Syringe IVPUSH PRN (13:45)
[2020-02-02] MEDS ORDERED: Promethazine 25 MG/ML SDV IM PRN (13:45)
--- NOTE | 2020-02-02 13:54 | PCM.OPNOTE ---
- General Post-Op/Procedure Note Date of Surgery/Procedure: 02/02/20 Operative Procedure(s): Laparoscopic converted to open cholecystectomy Findings: Severely inflamed gallbladder containing 3 small stones. Gallbladder wall thickened to ~1 cm. Posterior wall of gallbladder left in place. Pre Op Diagnosis: Symptomatic cholelithiasis Post-Op Diagnosis: Severe acute on chronic cholecystitis Anesthesia Technique: General ET Tube Primary Surgeon: Liliana Parson Fluid Replacement, Intraop: 3,000 Output, Urine Amount: 400 EBL in mLs: 500 Condition: Good
[2020-02-02 14:09] LABS: BLOOD UREA NITROGEN,BUN 13 mg/dL (7.0-18.0); CARBON DIOXIDE,CO2 27.7 mmol/L (21.0-32.0); CHLORIDE,CL 105 mmol/L (98-107); GLUCOSE RANDOM 109 mg/dL (74-106); POTASSIUM,K 4.8 mmol/L (3.5-5.1); SODIUM,NA 138 mmol/L (136-148)
[2020-02-02] MEDS ORDERED: HYDROmorphone 1 MG/ML Syringe IVPUSH PRN (15:00)
--- NOTE | 2020-02-02 15:25 | PCM.POSTAN ---
POST ANESTHESIA ASSESSMENT - MENTAL STATUS Mental Status: Alert, Oriented - VITAL SIGNS Vital Signs: Last Vital Signs Temp 37.1 C 02/02/20 14:20 Pulse 76 02/02/20 14:30 Resp 13 02/02/20 14:45 BP 145/69 H 02/02/20 14:45 Pulse Ox 98 02/02/20 14:45 - RESPIRATORY Respiratory Status: Respiratory Rate WNL, Airway Patent, O2 Saturation Stable - CARDIOVASCULAR CV Status: Pulse Rate WNL, Blood Pressure Stable - GASTROINTESTINAL GI Status: No Symptoms - PAIN Pain Score: 0 - POST OP HYDRATION Hydration Status: Adequate & Stable - OBSERVATIONS Free Text/Narrative:: No anesthesia problems
[2020-02-02] MEDS: Cyclobenzaprine 10 MG Tab PO SCH ×2 (16:11→22:54)
[2020-02-02] MEDS: Piperacillin/Tazobactam 3.375 GM in Sodium Chloride 0.9% 50 ML IV SCH (17:13)
[2020-02-02] MEDS: Ketorolac 30 MG/ML SDV IVPUSH SCH (18:54)
[2020-02-02] MEDS ORDERED: Lactated Ringers 1,000 ML IV ONE (23:03)
[2020-02-03] MEDS: Lactated Ringers 1,000 ML IV SCH ×3 (00:15→21:36)
[2020-02-03] MEDS: Ketorolac 30 MG/ML SDV IVPUSH SCH ×3 (00:35→14:59)
[2020-02-03] MEDS: Piperacillin/Tazobactam 3.375 GM in Sodium Chloride 0.9% 50 ML IV SCH ×5 (00:35→23:55)
[2020-02-03 06:00] LABS: BLOOD UREA NITROGEN,BUN 15 mg/dL (7.0-18.0); CARBON DIOXIDE,CO2 30.6 mmol/L (21.0-32.0); CHLORIDE,CL 105 mmol/L (98-107); GLUCOSE RANDOM 92 mg/dL (74-106); POTASSIUM,K 4.2 mmol/L (3.5-5.1); SODIUM,NA 140 mmol/L (136-148)
[2020-02-03] MEDS: Omeprazole 20 MG Cap.CR PO SCH (06:32)
[2020-02-03] MEDS: Cyclobenzaprine 10 MG Tab PO SCH ×3 (06:32→21:34)
--- NOTE | 2020-02-03 06:55 | PCM48HPAN ---
Post Anesthesia Note - EVALUATION WITHIN 48HRS OF ANESTHETIC Vital Signs in Normal Range: Yes Patient Participated in Evaluation: Yes Respiratory Function Stable: Yes (1-2 LPM via NC thru NOC) Airway Patent: Yes Cardiovascular Function Stable: Yes Hydration Status Stable: Yes Pain Control Satisfactory: Yes Nausea and Vomiting Control Satisfactory: Yes Mental Status Recovered: Yes Vital Signs: Last Vital Signs Temp 97.7 F 02/03/20 04:00 Pulse 76 02/02/20 14:30 Resp 17 02/03/20 06:00 BP 129/59 L 02/03/20 06:00 Pulse Ox 95 02/03/20 06:00
[2020-02-03] MEDS: Enoxaparin 40 MG/0.4 ML Syringe SUBCUT SCH (08:54)
--- NOTE | 2020-02-03 14:28 | PCM.SURGPN ---
- General Info Date of Service: 02/03/20 Date of Surgery/Procedure: 02/04/20 POD#: 1 Functional Status: Reports: Pain Controlled, Tolerating Diet, Ambulating, Urinating, Incentive Spirometry. Denies: New Symptoms - Review of Systems General: Reports: No Symptoms HEENT: Reports: No Symptoms Pulmonary: Reports: No Symptoms Cardiovascular: Reports: No Symptoms Gastrointestinal: Reports: Abdominal Pain (along incision ), Decreased Appetite. Denies: Flatus Genitourinary: Reports: No Symptoms Musculoskeletal: Reports: No Symptoms Skin: Reports: No Symptoms Neurological: Reports: No Symptoms - Patient Data Vitals - Most Recent: Last Vital Signs Temp 36.2 C 02/03/20 08:00 Pulse 76 02/02/20 14:30 Resp 18 02/03/20 08:00 BP 140/72 02/03/20 08:00 Pulse Ox 95 02/03/20 08:00 Weight - Most Recent: 169.4 kg I&O - Last 24 Hours: Intake & Output 02/02/20 02/03/20 02/03/20 22:59 06:59 14:59 Intake Total 430 2529 Output Total 527 362 80 Balance -97 2167 -80 Lab Results Last 24 Hrs: Laboratory Results - last 24 hr 02/02/20 02/03/20 02/03/20 Range/Units 13:25 05:12 05:12 WBC 9.24 (4.0-11.0) K/uL RBC 4.25 L (4.50-5.90) M/uL Hgb 12.2 L (13.0-17.0) g/dL Hct 38.5 (38.0-50.0) % MCV 90.6 (80.0-98.0) fL MCH 28.7 (27.0-32.0) pg MCHC 31.7 (31.0-37.0) g/dL RDW Std Deviation 47.7 (28.0-62.0) fl RDW Coeff of Yazmin 14 (11.0-15.0) % Plt Count 184 (150-400) K/uL MPV 9.30 (7.40-12.00) fL Neut % (Auto) 65.4 (48.0-80.0) % Lymph % (Auto) 23.4 (16.0-40.0) % Foster % (Auto) 10.6 (0.0-15.0) % Eos % (Auto) 0.5 (0.0-7.0) % Baso % (Auto) 0.1 (0.0-1.5) % Neut # (Auto) 6.0 H (1.4-5.7) K/uL Lymph # (Auto) 2.2 (0.6-2.4) K/uL Foster # (Auto) 1.0 H (0.0-0.8) K/uL Eos # (Auto) 0.1 (0.0-0.7) K/uL Baso # (Auto) 0.0 (0.0-0.1) K/uL Nucleated RBC % 0.0 /100WBC Nucleated RBCs # 0 K/uL Sodium 140 (136-148) mmol/L Potassium 4.2 (3.5-5.1) mmol/L Chloride 105 (98-107) mmol/L Carbon Dioxide 30.6 (21.0-32.0) mmol/L BUN 15 (7.0-18.0) mg/dL Creatinine 0.9 (0.8-1.3) mg/dL Est Cr Clr Drug Dosing 135.29 mL/min Estimated GFR (MDRD) > 60.0 ml/min Glucose 92 (74-106) mg/dL Calcium 7.5 L (8.5-10.1) mg/dL Total Bilirubin 0.6 (0.2-1.0) mg/dL AST 12 L (15-37) IU/L ALT 21 (14-63) IU/L Alkaline Phosphatase 44 L (46-116) U/L Total Protein 5.6 L (6.4-8.2) g/dL Albumin 2.5 L (3.4-5.0) g/dL Globulin 3.1 (2.6-4.0) g/dL Albumin/Globulin Ratio 0.8 L (0.9-1.6) Blood Type AB NEGATIVE Antibody Screen NEGATIVE Cold Antibody Screen POSITIVE [place] Results Last 24 Hrs: Microbiology 02/02/20 13:37 Gram Stain - Final Gallbladder Med Orders - Current: Current Medications Albuterol (Proventil Neb Soln) 2.5 mg NEB ONETIME PRN PRN Reason: Wheezing Atropine Sulfate (Atropine 0.1 Mg/Ml) 0.5 mg IVPUSH ASDIRECTED PRN PRN Reason: Hypo-perfusion Atropine Sulfate (Atropine 0.1 Mg/Ml) 1 mg IVPUSH ASDIRECTED PRN PRN Reason: Hypo-Perfusion Cyclobenzaprine HCl (Flexeril) 10 mg PO TID [facility] Last Admin: 02/03/20 06:32 Dose: 10 mg Dextrose/Water (Dextrose 50% In Water) 50 ml IVPUSH ASDIRECTED PRN PRN Reason: Hypoglycemia Diphenhydramine HCl (Benadryl) 50 mg IVPUSH Q4H PRN PRN Reason: Itching Enoxaparin Sodium (Lovenox) 40 mg SUBCUT Q24H [facility] Last Admin: 02/03/20 08:54 Dose: 40 mg Epinephrine HCl (Epinephrine 1:10,000) 1 mg IVPUSH ASDIRECTED PRN PRN Reason: ACLS Guidelines Fentanyl (Sublimaze) 50 mcg IVPUSH Q5M PRN PRN Reason: Pain Hydromorphone HCl (Dilaudid) 0.5 mg IVPUSH Q1H PRN PRN Reason: Pain (severe 7-10) Piperacillin Sod/Tazobactam (Sod 3.375 gm/ Sodium Chloride) 50 mls @ 100 mls/ hr IV Q6H [facility] Last Admin: 02/03/20 11:34 Dose: 100 mls/hr Lactated Ringer's (Ringers, Lactated) 1,000 mls @ 125 mls/hr IV ASDIRECTED [facility] Last Admin: 02/03/20 06:30 Dose: 125 mls/hr Naloxone HCl (Narcan) 0.1 mg IVPUSH ASDIRECTED PRN PRN Reason: Respiratory Depression Omeprazole (Omeprazole) 20 mg PO ACBREAKFAST [facility] Last Admin: 02/03/20 06:32 Dose: 20 mg Ondansetron HCl (Zofran) 4 mg IVPUSH Q6H PRN PRN Reason: Nausea/Vomiting Oxycodone/Acetaminophen (Percocet 325-5 Mg) 2 tab PO Q4H PRN PRN Reason: Pain (moderate 4-6) Promethazine HCl (Phenergan) 25 mg IM Q6H PRN PRN Reason: Nausea Senna/Docusate Sodium (Senna Plus) 1 tab PO BID [facility] Last Admin: 02/03/20 08:54 Dose: 1 tab Discontinued Medications Bupivacaine HCl (Marcaine 0.5%) Confirm Administered Dose 30 ml .ROUTE .STK-MED ONE Stop: 02/02/20 09:11 Bupivacaine HCl (Marcaine 0.5%) Confirm Administered Dose 120 ml .ROUTE .STK- MED ONE Stop: 02/02/20 11:34 Cefazolin Sodium (Ancef) Confirm Administered Dose 2 gm .ROUTE .STK-MED ONE Stop: 02/02/20 10:48 Cefazolin Sodium (Ancef) Confirm Administered Dose 1 gm .ROUTE .STK-MED ONE Stop: 02/02/20 10:52 Cefazolin Sodium (Ancef) Confirm Administered Dose 1 gm .ROUTE .STK-MED ONE Stop: 02/02/20 11:34 Ephedrine Sulfate (Ephedrine Sulfate) Confirm Administered Dose 50 mg .ROUTE .STK-MED ONE Stop: 02/02/20 11:31 Fentanyl (Sublimaze) Confirm Administered Dose 250 mcg .ROUTE .STK-MED ONE Stop: 02/02/20 07:37 Fentanyl (Sublimaze) Confirm Administered Dose 100 mcg .ROUTE .STK-MED ONE Stop: 02/02/20 11:05 Fentanyl (Sublimaze) Confirm Administered Dose 100 mcg .ROUTE .STK-MED ONE Stop: 02/02/20 11:25 Fentanyl (Sublimaze) Confirm Administered Dose 100 mcg .ROUTE .STK-MED ONE Stop: 02/02/20 13:15 Glycopyrrolate (Robinul) Confirm Administered Dose 0.2 mg .ROUTE .STK-MED ONE Stop: 02/02/20 10:40 Glycopyrrolate (Robinul) Confirm Administered Dose 0.2 mg .ROUTE .STK-MED ONE Stop: 02/02/20 10:40 Hydromorphone HCl (Dilaudid) Confirm Administered Dose 2 mg .ROUTE .STK-MED ONE Stop: 02/02/20 12:19 Hydromorphone HCl (Dilaudid) 0.5 mg IVPUSH Q1H PRN PRN Reason: Pain (severe 7-10) Cefazolin Sodium/Dextrose 2 gm (/ Premix) 50 mls @ 100 mls/hr IV ONETIME ONE Stop: 12/10/19 09:05 Lactated Ringer's (Ringers, Lactated) 1,000 mls @ 125 mls/hr IV ASDIRECTED [facility] Cefazolin Sodium/Dextrose 2 gm (/ Premix) 50 mls @ 100 mls/hr IV ONETIME ONE Stop: 02/01/20 10:02 Last Admin: 02/02/20 19:20 Dose: Not Given Lactated Ringer's (Ringers, Lactated) 1,000 mls @ 125 mls/hr IV ASDIRECTED [facility] Last Admin: 02/02/20 20:54 Dose: 125 mls/hr Sodium Chloride (Normal Saline) Confirm Administered Dose 20 mls @ as directed .ROUTE .STK-MED ONE Stop: 02/02/20 10:48 Sodium Chloride (Normal Saline) Confirm Administered Dose 20 mls @ as directed .ROUTE .STK-MED ONE Stop: 02/02/20 10:52 Piperacillin Sod/Tazobactam (Sod 4.5 gm/ Sodium Chloride) 100 mls @ 200 mls/hr IV ONETIME ONE Stop: 02/02/20 12:14 Last Admin: 02/02/20 11:55 Dose: 200 mls/hr Lactated Ringer's (Ringers, Lactated) 1,000 mls @ 999 mls/hr IV .BOLUS ONE Stop: 02/03/20 00:03 Last Admin: 02/02/20 23:11 Dose: 999 mls/hr Lactated Ringer's (Ringers, Lactated) 1,000 mls @ 999 mls/hr IV ONETIME ONE Stop: 02/02/20 00:04 Last Admin: 02/02/20 23:36 Dose: Not Given Ketorolac Tromethamine (Toradol) Confirm Administered Dose 30 mg .ROUTE .STK- MED ONE Stop: 02/02/20 13:15 Ketorolac Tromethamine (Toradol) 30 mg IVPUSH Q6H [facility] Stop: 02/03/20 13:01 Last Admin: 02/03/20 06:31 Dose: 30 mg Lidocaine (Xylocaine-Mpf 2%) Confirm Administered Dose 5 ml .ROUTE .STK-MED ONE Stop: 02/02/20 08:30 Midazolam HCl (Versed 1 Mg/Ml) Confirm Administered Dose 2 mg .ROUTE .STK-MED ONE Stop: 02/02/20 08:30 Ondansetron HCl (Zofran) Confirm Administered Dose 4 mg .ROUTE .STK-MED ONE Stop: 02/02/20 08:30 Propofol (Diprivan 20 Ml) Confirm Administered Dose 400 mg .ROUTE .STK-MED ONE Stop: 02/02/20 08:30 Rocuronium [place] (Zemuron) Confirm Administered Dose 100 mg .ROUTE .STK-MED ONE Stop: 02/02/20 08:30 Sodium Chloride (Saline Flush) 10 ml FLUSH ASDIRECTED PRN PRN Reason: Keep Vein Open Sodium Chloride (Saline Flush) 2.5 ml FLUSH ASDIRECTED PRN PRN Reason: Keep Vein Open Sodium Chloride (Normal Saline) 10 ml IV ASDIRECTED PRN PRN Reason: IV Use - Exam Wound/Incisions: Other (Drain with serosanguinous output. Dressings reinforced last night due to bloody drainage on lateral dressings. These new dressings are clean dry and intact. ) General: Alert, Oriented, Cooperative, No Acute Distress HEENT: Pupils Equal, Pupils Reactive Neck: Trachea Midline Lungs: Clear to Auscultation, Normal Respiratory Effort Cardiovascular: Regular Rate, Regular Rhythm GI/Abdominal Exam: Soft, Non-Tender, No Distention, No Mass Extremities: Normal Inspection Skin: Warm, Dry, Intact Neurological: No New Focal Deficit Psy/Mental Status: Alert, Normal Affect, Normal Mood Sepsis Event Note - Evaluation Sepsis Screening Result: No Definite Risk - Focused Exam Vital Signs: Vital Signs Temp Resp BP Pulse Ox 02/03/20 08:00 36.2 C 18 140/72 95 02/03/20 07:00 17 125/64 95 02/03/20 06:00 17 129/59 L 95 02/03/20 05:00 16 120/64 94 L 02/03/20 04:00 36.5 C 17 116/65 95 02/03/20 03:00 17 112/61 94 L Date Exam was Performed: 02/03/20 Time Exam was Performed: 14:18 - Problem List & Annotations (1) Acute on chronic cholecystitis concurrent with and due to calculus of gallbladder and bile duct SNOMED Code(s): 53010897228166 Code(s): K80.66 - CALCULUS OF GB AND BILE DUCT W AC AND CHR CHOLECYST W/O OBST Status: Acute Current Visit: Yes - Problem List Review Problem List Initiated/Reviewed/Updated: Yes - My Orders Last 24 Hours: Active Orders 24 hr Category Date Time Status Patient Status [ADT] Routine ADT 02/02/20 13:45 Active Transfer Patient (Change bed) [ADT] Routine ADT 02/03/20 14:18 Ordered BIPAP [RT BiPAP/CPAP] [RC] ASDIRECTED Care 02/02/20 13:42 Active Intake and Output [RC] Q4HR Care 02/02/20 13:45 Active Oxygen Therapy [RC] PRN Care 02/02/20 13:45 Active Pulse Oximetry [RC] CONTINUOUS Care 02/02/20 13:46 Active RT Incentive Spirometry [RC] Q1HWA Care 02/02/20 13:45 Active Up ad Brooke [RC] ASDIRECTED Care 02/02/20 13:45 Active Vital Signs [RC] Q1H Care 02/02/20 13:45 Active Regular Diet [DIET] Diet 02/03/20 Dinner Active ANAEROBIC CULTURE DAILY Lab 02/02/20 13:37 Received CBC WITH AUTO DIFF [HEME] AM Lab 02/04/20 05:11 Ordered CBC WITH AUTO DIFF [HEME] AM Lab 02/05/20 05:11 Ordered CBC WITH AUTO DIFF [HEME] AM Lab 02/06/20 05:11 Ordered COMPREHENSIVE METABOLIC PN,CMP [CHEM] AM Lab 02/04/20 05:11 Ordered COMPREHENSIVE METABOLIC PN,CMP [CHEM] AM Lab 02/05/20 05:11 Ordered COMPREHENSIVE METABOLIC PN,CMP [CHEM] AM Lab 02/06/20 05:11 Ordered CULTURE WOUND [RM] Routine Lab 02/02/20 13:37 Received Acetaminophen/oxyCODONE [Percocet 325-5 MG] Med 02/02/20 13:45 Active 2 tab PO Q4H PRN Cyclobenzaprine [Flexeril] Med 02/02/20 14:00 Active 10 mg PO TID Docusate Sodium/Sennosides [Senna Plus] Med 02/03/20 09:00 Active 1 tab PO BID Enoxaparin [Lovenox] Med 02/03/20 09:00 Active 40 mg SUBCUT Q24H HYDROmorphone [Dilaudid] Med 02/02/20 15:00 Active 0.5 mg IVPUSH Q1H PRN Lactated Ringers [Ringers, Lactated] 1,000 ml Med 02/02/20 23:15 Active IV ASDIRECTED Omeprazole Med 02/03/20 07:30 Active 20 mg PO ACBREAKFAST Ondansetron [Zofran] Med 02/02/20 13:45 Active 4 mg IVPUSH Q6H PRN Piperacillin/Tazobactam [Piperacil-Tazobact] 3.375 gm Med 02/02/20 18:00 Active Sodium Chloride 0.9% [Normal Saline] 50 ml IV Q6H Promethazine [Phenergan] Med 02/02/20 13:45 Active 25 mg IM Q6H PRN diphenhydrAMINE [Benadryl] Med 02/02/20 13:45 Active 50 mg IVPUSH Q4H PRN Abdominal Binder [OM.PC] Per Unit Routine Oth 02/02/20 13:46 Ordered Resuscitation Status Routine Resus Stat 02/02/20 13:45 Ordered Medication Orders Albuterol (Proventil Neb Soln) 2.5 mg NEB ONETIME PRN PRN Reason: Wheezing Atropine Sulfate (Atropine 0.1 Mg/Ml) 0.5 mg IVPUSH ASDIRECTED PRN PRN Reason: Hypo-perfusion Atropine Sulfate (Atropine 0.1 Mg/Ml) 1 mg IVPUSH ASDIRECTED PRN PRN Reason: Hypo-Perfusion Cyclobenzaprine HCl (Flexeril) 10 mg PO TID [facility] Last Admin: 02/03/20 06:32 Dose: 10 mg Admin: 02/02/20 22:54 Dose: 10 mg Admin: 02/02/20 16:11 Dose: 10 mg Dextrose/Water (Dextrose 50% In Water) 50 ml IVPUSH ASDIRECTED PRN PRN Reason: Hypoglycemia Diphenhydramine HCl (Benadryl) 50 mg IVPUSH Q4H PRN PRN Reason: Itching Enoxaparin Sodium (Lovenox) 40 mg SUBCUT Q24H [facility] Last Admin: 02/03/20 08:54 Dose: 40 mg Epinephrine HCl (Epinephrine 1:10,000) 1 mg IVPUSH ASDIRECTED PRN PRN Reason: ACLS Guidelines Fentanyl (Sublimaze) 50 mcg IVPUSH Q5M PRN PRN Reason: Pain Hydromorphone HCl (Dilaudid) 0.5 mg IVPUSH Q1H PRN PRN Reason: Pain (severe 7-10) Piperacillin Sod/Tazobactam (Sod 3.375 gm/ Sodium Chloride) 50 mls @ 100 mls/ hr IV Q6H [facility] Last Admin: 02/03/20 11:34 Dose: 100 mls/hr Infusion: 02/03/20 06:59 Dose: 100 mls/hr Admin: 02/03/20 06:29 Dose: 100 mls/hr Infusion: 02/03/20 01:05 Dose: 100 mls/hr Admin: 02/03/20 00:35 Dose: 100 mls/hr Infusion: 02/02/20 17:43 Dose: 100 mls/hr Admin: 02/02/20 17:13 Dose: 100 mls/hr Lactated Ringer's (Ringers, Lactated) 1,000 mls @ 125 mls/hr IV ASDIRECTED [facility] Last Admin: 02/03/20 06:30 Dose: 125 mls/hr Infusion: 02/03/20 06:30 Dose: 125 mls/hr Admin: 02/03/20 00:15 Dose: 125 mls/hr Naloxone HCl (Narcan) 0.1 mg IVPUSH ASDIRECTED PRN PRN Reason: Respiratory Depression Omeprazole (Omeprazole) 20 mg PO ACBREAKFAST [facility] Last Admin: 02/03/20 06:32 Dose: 20 mg Ondansetron HCl (Zofran) 4 mg IVPUSH Q6H PRN PRN Reason: Nausea/Vomiting Oxycodone/Acetaminophen (Percocet 325-5 Mg) 2 tab PO Q4H PRN PRN Reason: Pain (moderate 4-6) Promethazine HCl (Phenergan) 25 mg IM Q6H PRN PRN Reason: Nausea Senna/Docusate Sodium (Senna Plus) 1 tab PO BID [facility] Last Admin: 02/03/20 08:54 Dose: 1 tab - Plan Plan (Free Text/Narrative):: No acute events overnight. Did not use any narcotics overnight and comfortable this morning. UOP adequate and BUN/Cr WNL so dasilva out this morning. Tolerated clear liquid diet. Advance to regular. Neuro: Scheduled Toradol and Flexeril. Prn Percocet and IV Dilaudid for more severe pain. Abdominal binder as needed for comfort. CV: BP stable. Stop cardiac monitoring. Bipap as needed while asleep. Likely has undiagnosed sleep apnea. Will monitor closely while on floor. Encourage OOB activity and IS use. Offered nicotine patch. Patient declined at this time. GI: Advance diet to regular. Start miralax today. Start multivitamin. LFTs Normal. Renal: UOP adequate. Once taking adequate po can d/c IVF. Heme: Lower today likely due to operative loss. Will continue to monitor. Lovenox for DVT px. ID: WBC in normal limits today. Afebrile. Continue IV antibiotics. If tolerating po and WBC still WNL, will switch to oral tomorrow.
--- NOTE | 2020-02-03 19:37 | OR ---
SURGEON: LILIANA LANG MD DATE OF PROCEDURE: 02/02/2020 PREOPERATIVE DIAGNOSIS: Symptomatic cholelithiasis. POSTOPERATIVE DIAGNOSIS: Acute on chronic cholecystitis. PROCEDURE PERFORMED: Laparoscopic, converted to open, cholecystectomy. PRIMARY SURGEON: Liliana Lang MD SECONDARY SURGEON: Billy Honeycutt MD ANESTHESIA: General endotracheal anesthesia. FLUIDS: 3000 mL of crystalloid. ESTIMATED BLOOD LOSS: 500 mL. URINE OUTPUT: 400 mL. FINDINGS: Severely inflamed gallbladder containing 3 stones. Gallbladder wall thickened to approximately 1 cm. Posterior wall of gallbladder left in place. COMPLICATIONS: None. INDICATIONS: The patient is a 39-year-old male who presented to my office several months ago with symptomatic cholelithiasis. Due to the COVID-19 crisis, his surgery was placed on hold. He presented to the emergency room on January 22 with increasing right upper quadrant abdominal pain. Workup at that time revealed normal labs and a questionably thickened gallbladder wall. There were no signs of acute cholecystitis. The patient and I discussed the need for laparoscopic, possible open, cholecystectomy. I explained the procedure, expected perioperative course, and the risks. The patient verbalized understanding and wishes to proceed. PROCEDURE IN DETAIL: The patient was brought into the OR and placed on the OR table in supine position. A time-out was completed verifying the patient's name, age, date of , allergies, and procedure to be performed. General endotracheal anesthesia was induced. The left arm was tucked to the patient's side and a Arana catheter placed. The abdomen was prepped and draped in usual standard fashion. I anesthetized the supraumbilical fold with 0.5% Marcaine plain. An 11 blade was used to make an incision along the infraumbilical fold. Cautery was used to dissect down to the level of subcutaneous fat. I bluntly dissected down to the fascia. The fascia was elevated with Laureen's and incised sharply using curved Durand scissors. The peritoneum was identified. This was elevated and incised sharply with Metzenbaum scissors. Entry into the abdomen was palpated digitally. A 12 mm Arturo trocar was placed in the abdomen and the abdomen insufflated. A 5 mm 30-degree scope was inserted, and I inspected the area underneath my initial trocar placement. No damage to surrounding structures was noted. The patient was then placed in reverse Trendelenburg position and airplaned slightly to the left. 5 mm trocars were placed in the following locations under direct visualization; one in the epigastric area, one in the right flank, and one 2 fingerbreadths below the right subcostal margin in the midclavicular line. There was omentum overlying the gallbladder. I attempted to sweep this away, but was unable to do so. Using suction and a Kittner device, I was eventually able to free up enough of the omentum to just see the top of the gallbladder. This was grasped with an atraumatic grasper, and I elevated the gallbladder. It was densely inflamed and very immobile. I attempted to take down all the surrounding adhesions around the gallbladder, but due to the severe inflammation associated with what appeared to be his acute on chronic cholecystitis, I was unable to do so safely laparoscopically. The decision was made to convert to an open procedure. I called my senior integration architect, Dr. Billy Honeycutt, into the case to assist given the degree of difficulty. The 5 mm trocars were removed as well as the 12 mm Arturo trocar. I closed the fascia at the supraumbilical port site with interrupted 0 Vicryl sutures. A 15 blade was used to make a right upper quadrant oblique incision, which was situated two fingerbreadths below the right subcostal margin. Cautery was used to dissect down through the layers of the abdominal wall. The peritoneum was elevated with hemostats and opened sharply using Metzenbaum scissors. Once I was in the abdomen, I then extended my peritoneal incision both medially and laterally. Retractors and moistened laps were then placed in the abdomen. The gallbladder was encased in an inflamed rind, which involved the surrounding omentum and small bowel. Using gentle finger dissection, I was able to eventually free up these adhesions around the gallbladder down to the base of the infundibulum. The infundibulum was surrounded by inflamed fat, which obscured the cystic triangle. Given the degree of inflammation, the decision was made to try and proceed in a dome down fashion with our dissection. A metal trocar was placed through the top of the gallbladder and used to try and decompress the gallbladder. During my finger dissection, I made a small rent in the mid body of the gallbladder and clear fluid mixed with purulent material was expressed and suctioned out. Some of this was sent for culture. A small amount of similar appearing fluid was noted with the metal trocar. We attempted to create a plane between the gallbladder and the gallbladder fossa using Metzenbaum scissors and sharp dissection. We were unable to develop this plane due to the degree of inflammation. Eventually, we entered into the gallbladder lumen itself. In order to prevent any further trauma to the liver bed, the decision was made to leave the posterior wall of the gallbladder. Using electrocautery, we took down the edges of the gallbladder and worked from distal to proximal. As we got closer to the proximal aspect of the gallbladder, we encountered three small stones. They were passed off the field. We then used our intraluminal view to guide our dissection proximally. A right angle and a Kittner were then used to dissect free the cystic duct. This was tied off proximally using a 2-0 Vicryl suture. Just distal to this, two 5 mm clips were applied. We then transected above these clips this using Metzenbaum scissors. This gave us some mobility in the proximal aspect of our gallbladder to begin to proceed with more of our dissection. There was a thick inflammatory rind around the cystic artery. We were eventually able to come down along the posterior wall and come across the cystic artery. This was grasped with a right angle clamp and tied with a 3-0 silk, however, given the degree of inflammation, this pulled through and so two 5 mm clips were placed on the cystic artery, which then controlled our bleeding. The gallbladder was then passed off the field and sent to pathology. The coagulation intensity on our cautery was turned up, and we cauterized the posterior wall of the gallbladder, which we had left in place. The abdomen was then irrigated with an Ancef-normal saline solution, which was then suctioned out. Surgicel and Avitene were then placed in the gallbladder fossa and pressure held for 2 minutes. We reinspected our operative field and it appeared to be dry with no evidence of bile leakage. A 19-Armenian Christopher drain was then placed within the gallbladder fossa and brought out through our right lateral port incision. It was secured to the skin using an interrupted 2-0 silk suture. Once we were sure that all counts were complete and correct, we began to close our abdominal wall. The posterior fascia and peritoneum were closed with a running 0 Vicryl suture. The anterior abdominal fascia was closed with interrupted 0 Ethibond suture. The oblique muscles were closed with interrupted 0 Ethibond sutures as well. An On-Q pain pump was placed over the top of the fascia. The subcutaneous fat layer was closed with a running 3-0 Vicryl suture. The skin was closed with roselia. The supraumbilical port site skin was closed with roselia as well. The epigastric port incision was closed with roselia. Sterile dressings were applied. The patient tolerated the procedure well and was taken to the PACU in stable condition. All counts were complete and correct at the end of the case. FATUMA / DOUG /[id number] DENIS
[2020-02-03] MEDS ORDERED: Multivitamin Tab PO SCH (21:00)
[2020-02-04] MEDS: Piperacillin/Tazobactam 3.375 GM in Sodium Chloride 0.9% 50 ML IV SCH (05:57)
[2020-02-04] MEDS: Cyclobenzaprine 10 MG Tab PO SCH ×2 (05:57→14:45)
[2020-02-04] MEDS: Lactated Ringers 1,000 ML IV SCH (06:00)
[2020-02-04 06:31] LABS: BLOOD UREA NITROGEN,BUN 10 mg/dL (7.0-18.0); CARBON DIOXIDE,CO2 32.7 mmol/L (21.0-32.0); CHLORIDE,CL 104 mmol/L (98-107); GLUCOSE RANDOM 76 mg/dL (74-106); POTASSIUM,K 4.2 mmol/L (3.5-5.1); SODIUM,NA 138 mmol/L (136-148)
[2020-02-04] MEDS: Omeprazole 20 MG Cap.CR PO SCH (06:53)
[2020-02-04] MEDS ORDERED: Polyethylene Glycol 3350 Powder 17 GM Packet PO SCH (09:00)
[2020-02-04] MEDS: Enoxaparin 40 MG/0.4 ML Syringe SUBCUT SCH (09:05)
[2020-02-04] MEDS ORDERED: Ciprofloxacin 500 MG Tab PO SCH (09:30)
[2020-02-04] MEDS: metroNIDAZOLE 250 MG Tab PO SCH ×2 (10:29→14:45)
--- NOTE | 2020-02-04 14:33 | PCM.DCSUM1 ---
Discharge Summary - Hospital Course Free Text/Narrative:: Patient is a 39-year-old male who presented to my office in October with symptomatic cholelithiasis. He was scheduled for a laparoscopic possible open cholecystectomy but this had to be postponed due to the COVID-19 crisis. The patient developed right upper quadrant pain at the beginning of January. He presented to the emergency room. CBC and CMP were unremarkable. Ultrasound right upper quadrant showed mild thickening of the gallbladder wall but no signs of acute cholecystitis. He came in 10 days later for an elective cholecystectomy. He was found to have a severely inflamed and enlarged gallbladder. He underwent a laparoscopic converted to open cholecystectomy which was quite difficult. The patient was admitted to the ICU for close monitoring after the procedure as well as for BiPAP support. He did extremely well after the procedure. His vital signs remained stable. He uses BiPAP for the first night but then did not need it after that. He is minimal narcotics. Scheduled Flexeril Toradol and when necessary Percocet controlled his pain quite well. On postop day 2 he started to pass gas. His diet was slowly advanced without difficulty. His wounds were inspected on postop day 2. There was no signs of infection or wound breakdown. His drain showed no evidence of bile staining and was removed on postop day 2 as well. There was some questionable purulent material noted within the gallbladder during the case. This was sent for culture. It grew strain of Escherichia coli. The patient was kept on Zosyn after the procedure and on postop day 2 was switched over to ciprofloxacin and Flagyl. His white count came down to normal. His LFTs and bilirubin were normal. He was cleared for discharge. - Discharge Data Discharge Date: 02/05/20 Discharge Disposition: Home, Self-Care 01 Condition: Good - Referral to Home Health Primary Care Physician: Joy Navarro NP - Discharge Diagnosis/Problem(s) (1) Acute on chronic cholecystitis concurrent with and due to calculus of gallbladder and bile duct SNOMED Code(s): 51178670989465 ICD Code: K80.66 - CALCULUS OF GB AND BILE DUCT W AC AND CHR CHOLECYST W/O OBST Status: Acute - Patient Summary/Data Operative Procedure(s) Performed: Laparoscopic converted to open cholecystectomy - Patient Instructions Diet: Regular Diet as Tolerated, Drink 8-10+ Glasses/Day Diet, Other: Small frequent meals Activity: No Lifting Over 20 Pounds (for six weeks), Rest and Relax Today Activity, Other: 2 weeks off work Driving: Do Not Drive (for at least 1 week or while on narcotics ) Showering/Bathing: May Shower, No Tub Bathing/Swimming (for 2 weeks ) Wound/Incision Care: Keep Operative Site/Wound Site Clean and Dry Notify Provider of: Fever, Increased Pain, Swelling and Redness, Drainage, Nausea and/or Vomiting - Discharge Plan *PRESCRIPTION DRUG MONITORING PROGRAM REVIEWED*: Yes *COPY OF PRESCRIPTION DRUG MONITORING REPORT IN PATIENT MONTEZ: Yes Prescriptions/Med Rec: polyethylene glycoL 3350 [MiraLAX] 17 gm PO DAILY #14 packet Home Medications: Home Meds Fish Oil/[place]-3 Fatty Acids [Fish Oil] 1 tab PO DAILY 03/11/19 [History] hydroCHLOROthiazide [Hydrochlorothiazide] 50 mg PO DAILY 01/27/20 [History] lisinopriL [Lisinopril] 20 mg PO DAILY 01/27/20 [History] polyethylene glycoL 3350 [MiraLAX] 17 gm PO DAILY #14 packet 02/04/20 [Rx] Patient Handouts: Cyclobenzaprine tablets, Open Cholecystectomy, Care After, Acetaminophen; Oxycodone tablets, Ketorolac tablets, Ciprofloxacin tablets, Metronidazole tablets or capsules, Polyethylene Glycol powder Referrals: Liliana Parson MD [Physician] - 02/17/20 1:45 pm - Discharge Summary/Plan Comment DC Time >30 min.: No - General Info Date of Service: 02/05/20 Functional Status: Reports: Pain Controlled, Tolerating Diet, Ambulating, Urinating, New Symptoms - Review of Systems General: Reports: No Symptoms HEENT: Reports: No Symptoms Pulmonary: Reports: No Symptoms Cardiovascular: Reports: No Symptoms Gastrointestinal: Reports: Abdominal Pain (with movement in the RUQ), Flatus Genitourinary: Reports: No Symptoms Musculoskeletal: Reports: No Symptoms Skin: Reports: No Symptoms Neurological: Reports: No Symptoms Psychiatric: Reports: No Symptoms - Patient Data Vitals - Most Recent: Last Vital Signs Temp 36.8 C 02/04/20 12:00 Pulse 57 L 02/04/20 12:00 Resp 18 02/04/20 12:00 BP 135/82 02/04/20 12:00 Pulse Ox 94 L 02/04/20 12:00 Weight - Most Recent: 171.231 kg I&O - Last 24 hours: Intake & Output 02/03/20 02/04/20 02/04/20 22:59 06:59 14:59 Intake Total 5185 167 4215 Output Total 9627 547 5781 Balance 80 -100 -790 Lab Results - Last 24 hrs: Laboratory Results - last 24 hr 02/04/20 02/04/20 Range/Units 05:33 05:33 WBC 7.50 (4.0-11.0) K/uL RBC 3.97 L (4.50-5.90) M/uL Hgb 11.5 L (13.0-17.0) g/dL Hct 36.1 L (38.0-50.0) % MCV 90.9 (80.0-98.0) fL MCH 29.0 (27.0-32.0) pg MCHC 31.9 (31.0-37.0) g/dL RDW Std Deviation 46.6 (28.0-62.0) fl RDW Coeff of Yazmin 14 (11.0-15.0) % Plt Count 158 (150-400) K/uL MPV 9.40 (7.40-12.00) fL Neut % (Auto) 60.0 (48.0-80.0) % Lymph % (Auto) 27.2 (16.0-40.0) % [place] % (Auto) 10.9 (0.0-15.0) % Eos % (Auto) 1.6 (0.0-7.0) % Baso % (Auto) 0.3 (0.0-1.5) % Neut # (Auto) 4.5 (1.4-5.7) K/uL Lymph # (Auto) 2.0 (0.6-2.4) K/uL [place] # (Auto) 0.8 (0.0-0.8) K/uL Eos # (Auto) 0.1 (0.0-0.7) K/uL Baso # (Auto) 0.0 (0.0-0.1) K/uL Nucleated RBC % 0.0 /100WBC Nucleated RBCs # 0 K/uL Sodium 138 (136-148) mmol/L Potassium 4.2 (3.5-5.1) mmol/L Chloride 104 (98-107) mmol/L Carbon Dioxide 32.7 H (21.0-32.0) mmol/L BUN 10 (7.0-18.0) mg/dL Creatinine 1.0 (0.8-1.3) mg/dL Est Cr Clr Drug Dosing 121.76 mL/min Estimated GFR (MDRD) > 60.0 ml/min Glucose 76 (74-106) mg/dL Calcium 7.9 L (8.5-10.1) mg/dL Total Bilirubin 0.5 (0.2-1.0) mg/dL AST 14 L (15-37) IU/L ALT 20 (14-63) IU/L Alkaline Phosphatase 37 L (46-116) U/L Total Protein 5.7 L (6.4-8.2) g/dL Albumin 2.5 L (3.4-5.0) g/dL Globulin 3.2 (2.6-4.0) g/dL Albumin/Globulin Ratio 0.8 L (0.9-1.6) BLANCA Results - Last 24 hrs: Microbiology 02/02/20 13:37 Wound Culture - Final Gallbladder Escherichia Hermannii Med Orders - Current: Current Medications Ciprofloxacin (Ciprofloxacin Hcl) 500 mg PO BID [facility] Last Admin: 02/04/20 10:29 Dose: 500 mg Cyclobenzaprine HCl (Flexeril) 10 mg PO TID [facility] Last Admin: 02/04/20 05:57 Dose: 10 mg Diphenhydramine HCl (Benadryl) 50 mg IVPUSH Q4H PRN PRN Reason: Itching Enoxaparin Sodium (Lovenox) 40 mg SUBCUT Q24H [facility] Last Admin: 02/04/20 09:05 Dose: 40 mg Hydromorphone HCl (Dilaudid) 0.5 mg IVPUSH Q1H PRN PRN Reason: Pain (severe 7-10) Metronidazole (Metronidazole) 250 mg PO Q6H [facility] Last Admin: 02/04/20 10:29 Dose: 250 mg Multivitamins/Minerals/Vitamin C (Tab-A-Patti) 1 tab PO BEDTIME [facility] Last Admin: 02/03/20 21:34 Dose: 1 tab Omeprazole (Omeprazole) 20 mg PO ACBREAKFAST [facility] Last Admin: 02/04/20 06:53 Dose: 20 mg Ondansetron HCl (Zofran) 4 mg IVPUSH Q6H PRN PRN Reason: Nausea/Vomiting Oxycodone/Acetaminophen (Percocet 325-5 Mg) 2 tab PO Q4H PRN PRN Reason: Pain (moderate 4-6) Polyethylene Glycol (Miralax) 17 gm PO DAILY [facility] Last Admin: 02/04/20 09:06 Dose: 17 gm Promethazine HCl (Phenergan) 25 mg IM Q6H PRN PRN Reason: Nausea Discontinued Medications Albuterol (Proventil Neb Soln) 2.5 mg NEB ONETIME PRN PRN Reason: Wheezing Atropine Sulfate (Atropine 0.1 Mg/Ml) 0.5 mg IVPUSH ASDIRECTED PRN PRN Reason: Hypo-perfusion Atropine Sulfate (Atropine 0.1 Mg/Ml) 1 mg IVPUSH ASDIRECTED PRN PRN Reason: Hypo-Perfusion Bupivacaine HCl (Marcaine 0.5%) Confirm Administered Dose 30 ml .ROUTE .STK-MED ONE Stop: 02/02/20 09:11 Bupivacaine HCl (Marcaine 0.5%) Confirm Administered Dose 120 ml .ROUTE .STK- MED ONE Stop: 02/02/20 11:34 Cefazolin Sodium (Ancef) Confirm Administered Dose 2 gm .ROUTE .STK-MED ONE Stop: 02/02/20 10:48 Cefazolin Sodium (Ancef) Confirm Administered Dose 1 gm .ROUTE .STK-MED ONE Stop: 02/02/20 10:52 Cefazolin Sodium (Ancef) Confirm Administered Dose 1 gm .ROUTE .STK-MED ONE Stop: 02/02/20 11:34 Dextrose/Water (Dextrose 50% In Water) 50 ml IVPUSH ASDIRECTED PRN PRN Reason: Hypoglycemia Ephedrine Sulfate (Ephedrine Sulfate) Confirm Administered Dose 50 mg .ROUTE .STK-MED ONE Stop: 02/02/20 11:31 Epinephrine HCl (Epinephrine 1:10,000) 1 mg IVPUSH ASDIRECTED PRN PRN Reason: ACLS Guidelines Fentanyl (Sublimaze) Confirm Administered Dose 250 mcg .ROUTE .STK-MED ONE Stop: 02/02/20 07:37 Fentanyl (Sublimaze) 50 mcg IVPUSH Q5M PRN PRN Reason: Pain Fentanyl (Sublimaze) Confirm Administered Dose 100 mcg .ROUTE .STK-MED ONE Stop: 02/02/20 11:05 Fentanyl (Sublimaze) Confirm Administered Dose 100 mcg .ROUTE .STK-MED ONE Stop: 02/02/20 11:25 Fentanyl (Sublimaze) Confirm Administered Dose 100 mcg .ROUTE .STK-MED ONE Stop: 02/02/20 13:15 Glycopyrrolate (Robinul) Confirm Administered Dose 0.2 mg .ROUTE .STK-MED ONE Stop: 02/02/20 10:40 Glycopyrrolate (Robinul) Confirm Administered Dose 0.2 mg .ROUTE .STK-MED ONE Stop: 02/02/20 10:40 Hydromorphone HCl (Dilaudid) Confirm Administered Dose 2 mg .ROUTE .STK-MED ONE Stop: 02/02/20 12:19 Hydromorphone HCl (Dilaudid) 0.5 mg IVPUSH Q1H PRN PRN Reason: Pain (severe 7-10) Cefazolin Sodium/Dextrose 2 gm (/ Premix) 50 mls @ 100 mls/hr IV ONETIME ONE Stop: 12/10/19 09:05 Lactated Ringer's (Ringers, Lactated) 1,000 mls @ 125 mls/hr IV ASDIRECTED [facility] Cefazolin Sodium/Dextrose 2 gm (/ Premix) 50 mls @ 100 mls/hr IV ONETIME ONE Stop: 02/01/20 10:02 Last Admin: 02/02/20 19:20 Dose: Not Given Lactated Ringer's (Ringers, Lactated) 1,000 mls @ 125 mls/hr IV ASDIRECTED [facility] Last Admin: 02/02/20 20:54 Dose: 125 mls/hr Sodium Chloride (Normal Saline) Confirm Administered Dose 20 mls @ as directed .ROUTE .STK-MED ONE Stop: 02/02/20 10:48 Sodium Chloride (Normal Saline) Confirm Administered Dose 20 mls @ as directed .ROUTE .STK-MED ONE Stop: 02/02/20 10:52 Piperacillin Sod/Tazobactam (Sod 4.5 gm/ Sodium Chloride) 100 mls @ 200 mls/hr IV ONETIME ONE Stop: 02/02/20 12:14 Last Admin: 02/02/20 11:55 Dose: 200 mls/hr Piperacillin Sod/Tazobactam (Sod 3.375 gm/ Sodium Chloride) 50 mls @ 100 mls/ hr IV Q6H [facility] Last Admin: 02/04/20 05:57 Dose: 100 mls/hr Lactated Ringer's (Ringers, Lactated) 1,000 mls @ 999 mls/hr IV .BOLUS ONE Stop: 02/03/20 00:03 Last Admin: 02/02/20 23:11 Dose: 999 mls/hr Lactated Ringer's (Ringers, Lactated) 1,000 mls @ 999 mls/hr IV ONETIME ONE Stop: 02/02/20 00:04 Last Admin: 02/02/20 23:36 Dose: Not Given Lactated Ringer's (Ringers, Lactated) 1,000 mls @ 125 mls/hr IV ASDIRECTED [facility] Last Admin: 02/04/20 06:00 Dose: 125 mls/hr Ketorolac Tromethamine (Toradol) Confirm Administered Dose 30 mg .ROUTE .STK- MED ONE Stop: 02/02/20 13:15 Ketorolac Tromethamine (Toradol) 30 mg IVPUSH Q6H [facility] Stop: 02/03/20 13:01 Last Admin: 02/03/20 14:59 Dose: 30 mg Lidocaine (Xylocaine-Mpf 2%) Confirm Administered Dose 5 ml .ROUTE .STK-MED ONE Stop: 02/02/20 08:30 Midazolam HCl (Versed 1 Mg/Ml) Confirm Administered Dose 2 mg .ROUTE .STK-MED ONE Stop: 02/02/20 08:30 Naloxone HCl (Narcan) 0.1 mg IVPUSH ASDIRECTED PRN PRN Reason: Respiratory Depression Ondansetron HCl (Zofran) Confirm Administered Dose 4 mg .ROUTE .STK-MED ONE Stop: 02/02/20 08:30 Propofol (Diprivan 20 Ml) Confirm Administered Dose 400 mg .ROUTE .STK-MED ONE Stop: 02/02/20 08:30 Rocuronium [place] (Zemuron) Confirm Administered Dose 100 mg .ROUTE .STK-MED ONE Stop: 02/02/20 08:30 Senna/Docusate Sodium (Senna Plus) 1 tab PO BID [facility] Last Admin: 02/03/20 08:54 Dose: 1 tab Sodium Chloride (Saline Flush) 10 ml FLUSH ASDIRECTED PRN PRN Reason: Keep Vein Open Sodium Chloride (Saline Flush) 2.5 ml FLUSH ASDIRECTED PRN PRN Reason: Keep Vein Open Sodium Chloride (Normal Saline) 10 ml IV ASDIRECTED PRN PRN Reason: IV Use - Exam General: Reports: Alert, Oriented, Cooperative, No Acute Distress Lungs: Reports: Normal Respiratory Effort Cardiovascular: Reports: Regular Rate GI/Abdominal Exam: Soft, Non-Tender, No Distention, No Mass, Other (well healing incision sites. ) Back Exam: Reports: Normal Inspection Extremities: Normal Inspection
== END 2020-02-04 16:15 | disposition home or self-care (01) | DRG 263 ==
LOC: MW.SDS 06:32 → MW.ICU 13:45 → UNDOADMIN 14:12 → MW.MS 02-03 18:11
PROVIDERS: ADMIT Surgery; ATTEND Surgery
PROC: 0FT40ZZ Resection of Gallbladder, Open Approach (ICD-10-PCS; principal; 2020-02-02)
PROC: 0FJ44ZZ Inspection of Gallbladder, Percutaneous Endoscopic Approach (ICD-10-PCS; 2020-02-02)
DX: K80.66 Calculus of gallbladder and bile duct with acute and chronic cholecystitis without obstruction (principal); K21.9 Gastro-esophageal reflux disease without esophagitis
CPT/HCPCS: 36415; 80053; 83735; 85025; 86156; 86850; 86900; 86901; 87070; 87075; 87077; 87186; 87205; 94660; A9270-GY; J0330; J0690; J1170; J1650; J1885; J2001; J2250; J2405; J2543; J2704; J3010; J3490; J7050; J7120